=== PATIENT | female | born 1970 | race Caucasian/White ===

== ENCOUNTER 2016-06-16 15:58 | Observation (INO) ==
--- NOTE | 2016-06-16 16:13 | Emergency Department Note ---
Disposition Clinical Impression: Chest pain Disposition: Admitted As Inpatient Condition: Fair SOB HPI - General Chief Complaint: ED Chest Pain Stated Complaint: SOB chest pressure x2days Time Seen by Provider: 06/16/16 16:12 Source: patient, family Mode of arrival: ambulatory Limitations: no limitations Nursing Notes Reviewed: Yes Vital Signs Reviewed: Yes - History of Present Illness 45-year-old female presents with worsening shortness of breath and chest pressure with exertion over the last week. She states that she used to be able to walk up to a block without developing any shortness of breath or chest pressure, but over the last few days she is not able to walk more than 20 or 30 feet without developing chest pain or shortness of breath. She states the pain is pressure and retrosternal and nonradiating. It is associated with diaphoresis when severe without nausea or vomiting. It is still present at rest at this time, but milder them with exertion. She states that she had a left heart catheter that was reportedly normal in 2011. She has not had any workup since then. Pt Subjective Complaint: shortness of breath, chest pain - Related Data Home Medications Medication Instructions Recorded Confirmed Amitriptyline [Elavil] 100 mg PO HS 08/15/15 06/16/16 Aspirin [Adult Low Dose Aspirin EC] 81 mg PO DAILY 08/15/15 06/16/16 Cetirizine HCl [Zyrtec] 10 mg PO HS 08/15/15 06/16/16 Cholecalciferol (Vitamin D3) 5,000 unit PO DAILY 08/15/15 06/16/16 [Dialyvite Vitamin D] Duloxetine HCl [Cymbalta] 60 mg PO DAILY 08/15/15 06/16/16 HYDROcodone/Acet 10/325 mg [[place] 1 each PO Q6H PRN 08/15/15 06/16/16 10-325 mg] Insulin ASPART [Novolog] 0 unit SQ TIDAC 08/15/15 06/16/16 Insulin DETEMIR [Levemir] 75 unit SQ BID 08/15/15 06/16/16 LORazepam [Ativan] 0.5 mg PO DAILY PRN 08/15/15 06/16/16 Liraglutide [Victoza 2-Gil] 1.8 mg SQ HS 08/15/15 06/16/16 Lisinopril [Zestril] 10 mg PO QAM 08/15/15 06/16/16 Omeprazole [PriLOSEC] 40 mg PO QAM 08/15/15 06/16/16 Ranitidine HCl [Zantac] 300 mg PO HS 08/15/15 06/16/16 Simvastatin [Zocor] 20 mg PO HS 08/15/15 06/16/16 BuPROPion SR (12 HR) [Wellbutrin 150 mg PO BID 06/16/16 06/16/16 SR] GlipiZIDE XL (24 HR) [Glucotrol XL] 5 mg PO 0800 06/16/16 06/16/16 Lisinopril [Zestril] 20 mg PO QPM 06/16/16 06/16/16 Metformin HCl [Glucophage] 1,000 mg PO BID 06/16/16 06/16/16 Metoprolol [Lopressor] 50 mg PO BID 06/16/16 06/16/16 Pregabalin [Lyrica] 200 mg PO QAM 06/16/16 06/16/16 Pregabalin [Lyrica] 300 mg PO QPM 06/16/16 06/16/16 Allergies Allergy/AdvReac Type Severity Reaction Status Date / Time Amoxicillin [From Augmentin] Allergy Rash Verified 04/30/15 12:54 cephalexin [From Keflex] Allergy Rash Verified 04/30/15 12:54 clavulanic acid Allergy Rash Verified 04/30/15 12:54 [From Augmentin] exenatide [From Bydureon] Allergy Swelling Verified 04/30/15 12:54 of Lip/Tongue/Throat frovatriptan [From Frova] Allergy Palpitation Verified 04/30/15 12:54 s ketorolac [From Toradol] Allergy Anaphylaxis Verified 04/30/15 12:54 Medroxyprogesterone Allergy Rash Verified 04/30/15 12:54 [From Provera] metronidazole [From Flagyl] Allergy Headache Verified 04/30/15 12:54 ondansetron Allergy Anaphylaxis Verified 04/30/15 12:54 [From Zofran (as hydrochloride)] Oxycodone Allergy Difficulty Verified 04/30/15 12:54 Breathing Sulfa (Sulfonamide Allergy Rash Verified 04/30/15 12:54 Antibiotics) Verapamil Allergy Palpitation Verified 12/02/15 12:54 s All systems ED: reviewed and negative except as stated. Past Medical History - Past Medical History Attestation: Yes The following information was validated with the patient. Source: patient Medical history: Reports: asthma, diabetes, GERD, hypertension, migraine Surgical history: Reports: cholecystectomy, other Psychiatric history: Reports: anxiety, depression - Social History Smoking Status: Unknown if ever smoked Smokeless Tobacco Status: No Alcohol use: Reports: unknown Drug use: Reports: none Physical Exam - Head Head exam: atraumatic, normocephalic, normal inspection - Eye Eye exam: Present: normal appearance, PERRL, EOMI - ENT ENT exam: normal exam, normal oropharynx, mucous membranes moist - Neck Neck exam: Present: normal inspection, full ROM, trachea midline - Chest Chest inspection: Present: normal inspection, symmetric chest wall rise - Respiratory Respiratory exam: Clear to auscultation bilaterally without wheezes rales or rhonchi Cardiovascular Cardiovascular exam: Present: regular rate, normal rhythm, normal heart sounds - Abdominal Exam Abdominal exam: Present: soft, Non-Tender. Absent: tenderness, distention, guarding, rebound, rigidity - Extremities Exam Extremities exam: Present: normal inspection, full ROM - Expanded Lower Extremity Exam Hip/Pelvis exam: Present: normal inspection, full ROM - Back Exam Back exam: Present: normal inspection, full ROM. Absent: tenderness, CVA tenderness (R), CVA tenderness (L) - Neurological Exam Neurological exam: Present: alert, oriented X3, CN II-XII intact - Psychiatric Psychiatric exam: Present: normal affect, normal mood - Skin Skin exam: Present: warm, dry, intact, normal color - General Limitations: no limitations General appearance: alert, in no apparent distress Course - Reevaluation(s) Reevaluation #1: ED evaluation shows chest x-ray without acute findings, negative troponin, and EKG with ST depression and T-wave inversions which are new from prior. Pain improved after initial nitroglycerin. We will administer another nitroglycerin prior to disposition. Time: 18:11 Reevaluation #2: Resolve after additional nitroglycerin. Patient accepted by Dr. Laird. Time: 18:58 Vital Signs Temperature 97.5 F L 06/16/16 16:01 Pulse Rate 96 06/16/16 16:01 Respiratory Rate 18 06/16/16 16:01 Blood Pressure 132/87 06/16/16 16:01 O2 Sat by Pulse Oximetry 98 06/16/16 16:01 Temperature 97.5 F L 06/16/16 16:01 Pulse Rate 90 06/16/16 18:16 Respiratory Rate 18 06/16/16 19:43 Blood Pressure 128/80 06/16/16 19:43 O2 Sat by Pulse Oximetry 96 06/16/16 18:16 Oxygen Delivery Oxygen Delivery Room Air Shortness of Breath/Dyspnea - Lab Data Result diagrams: 06/16/16 16:41 06/16/16 16:41 Lab Results 06/16/16 06/16/16 06/16/16 Range/Units 16:41 16:41 16:41 WBC 8.8 (4.3-11.1) K/mcL RBC 4.67 (3.82-4.97) M/mcL Hgb 13.4 (11.5-15.4) g/dL Hct 40.9 (35.3-44.9) % MCV 87.6 (83.0-100.0) fL MCH 28.7 (28.0-33.3) pg MCHC 32.8 (31.6-35.5) g/dL RDW 14.3 (11.5-14.5) % Plt Count 117 L (140-400) K/mcL MPV 11.0 (9.4-12.4) fL Immature Gran % 0.2 (0-4) % Seg Neutrophils % 66.0 % Lymphocytes % 24.9 % Monocytes % 8.4 % Eosinophils % 0.0 % Basophils % 0.5 % Neutrophils # 5.8 (1.6-8.9) K/mcL Lymphocytes # 2.2 (0.6-4.6) K/mcL Monocytes # 0.7 (0.0-1.3) K/mcL Eosinophils # 0.0 (0.0-0.6) K/mcL Basophils # 0.0 (0.0-0.2) K/mcL Sodium 134 L (136-145) mEq/L Potassium 3.8 (3.5-4.5) mEq/L Chloride 103 (98-109) mEq/L Carbon Dioxide 21 (19-29) mEq/L BUN 12 (7-20) mg/dL Creatinine 0.90 (0.57-1.11) mg/dL Est GFR ( Amer) > 60 (> 60) Est GFR (Non-Af Amer) > 60 (> 60) BUN/Creatinine Ratio 13 (6-26) Glucose 180 H (70-99) mg/dL Calculated Osmolality 282 (280-300) Calcium 9.6 (8.6-10.8) mg/dL Troponin I 0.01 (0-0.03) ng/mL B-Natriuretic Peptide (0-100) pg/mL 06/16/16 Range/Units 16:41 WBC (4.3-11.1) K/mcL RBC (3.82-4.97) M/mcL Hgb (11.5-15.4) g/dL Hct (35.3-44.9) % MCV (83.0-100.0) fL MCH (28.0-33.3) pg MCHC (31.6-35.5) g/dL RDW (11.5-14.5) % Plt Count (140-400) K/mcL MPV (9.4-12.4) fL Immature Gran % (0-4) % Seg Neutrophils % % Lymphocytes % % Monocytes % % Eosinophils % % Basophils % % Neutrophils # (1.6-8.9) K/mcL Lymphocytes # (0.6-4.6) K/mcL Monocytes # (0.0-1.3) K/mcL Eosinophils # (0.0-0.6) K/mcL Basophils # (0.0-0.2) K/mcL Sodium (136-145) mEq/L Potassium (3.5-4.5) mEq/L Chloride (98-109) mEq/L Carbon Dioxide (19-29) mEq/L BUN (7-20) mg/dL Creatinine (0.57-1.11) mg/dL Est GFR ( Amer) (> 60) Est GFR (Non-Af Amer) (> 60) BUN/Creatinine Ratio (6-26) Glucose (70-99) mg/dL Calculated Osmolality (280-300) Calcium (8.6-10.8) mg/dL Troponin I (0-0.03) ng/mL B-Natriuretic Peptide < 10 (0-100) pg/mL - Radiology Data Radiology results reviewed: Yes I reviewed the patient's radiology results. - EKG Data EKG attestation: Yes I reviewed and interpreted this EKG. EKG results narrative: Initial EKG shows normal sinus rhythm at 91 with normal axis and intervals. There is no ST elevation, but there is minimal ST depression in lead 1 and flipped T waves in aVL. These are new compared with 10/02/2012. Repeat EKG performed at 1749 shows one box of ST depression in lead 1 which is slightly increased from the initial EKG. Otherwise unchanged. Attestation Statement - Attestation Attestation: Dr Morales note: Patient was seen in conjunction with resident Dr. Dario Moyer; please see his chart for complete documentation. I spent [id number] time with the patient and I agree with the patient's treatment and disposition. Pain improved prior to admission; labs unremarkable; subtle ekg changes noted vs prior ekg from over 3 years ago;
[2016-06-16] MEDS ORDERED: Aspirin 81 MG TAB.CHEW PO ONE (16:26)
[2016-06-16] MEDS ORDERED: Nitroglycerin 0.4 MG TAB.SUBL SL STA (16:26)
[2016-06-16 17:04] LABS: Basophils % 0.5 %; Hematocrit 40.9 % (35.3-44.9); Hemoglobin 13.4 g/dL (11.5-15.4); Immature Granulocytes % 0.2 % (0-4); Lymphocytes # 2.2 K/mcL (0.6-4.6); Lymphocytes % 24.9 %; Mean Corpuscular HGB Conc 32.8 g/dL (31.6-35.5); Mean Corpuscular Hemoglobin 28.7 pg (28.0-33.3); Mean Corpuscular Volume 87.6 fL (83.0-100.0); Monocytes # 0.7 K/mcL (0.0-1.3); Monocytes % 8.4 %; Neutrophils # 5.8 K/mcL (1.6-8.9); Platelet Count 117 K/mcL (140-400); Red Blood Count 4.67 M/mcL (3.82-4.97); Red Cell Distribution Width 14.3 % (11.5-14.5)
[2016-06-16 17:16] LABS: BUN/Creatinine Ratio 13 (6-26); Blood Urea Nitrogen 12 mg/dL (7-20); Calcium 9.6 mg/dL (8.6-10.8); Carbon Dioxide 21 mEq/L (19-29); Chloride 103 mEq/L (98-109); Glucose 180 mg/dL (70-99); Osmolality,Calculated 282 (280-300); Potassium 3.8 mEq/L (3.5-4.5); Sodium 134 mEq/L (136-145); eGFR For African Americans > 60 (> 60); eGFR For Non-African Americans > 60 (> 60)
[2016-06-16] MEDS: Nitroglycerin 0.4 MG TAB.SUBL SL STA ×2 (18:18→18:43)
[2016-06-16] MEDS ORDERED: methylPREDNISolone 125 MG/2 ML VIAL IVP ONE (18:20)
[2016-06-16] MEDS ORDERED: MOM Conc 10 ML UD.LIQ PO PRN (19:49)
[2016-06-16] MEDS ORDERED: Acetaminophen 325 MG TABLET PO PRN (19:49)
[2016-06-16] MEDS ORDERED: Naloxone 0.4 MG/ML INJ IVP PRN (19:49)
[2016-06-16] MEDS ORDERED: *HR* LORazepam 0.5 MG TABLET PO PRN (19:57)
[2016-06-16] MEDS ORDERED: *HR* HYDROcodone/Acet 10/325 mg TABLET PO PRN (19:57)
--- NOTE | 2016-06-16 20:23 | Internal Med History&Physical ---
<Marisabel Baker - Last Filed: 06/16/16 20:20> Date of Encounter: 06/16/16 Time of Encounter: 07:45 Assessment and Plan (1) Chest pain Current visit: Yes Status: Acute Pt with 1 week h/o SOB and L chest pain. Most likely not cardiac and is related to fibromyalgia, however, pt is a poorly controlled diabetic with A1 of 9.3 in March, and elevated triglycerides. EKG NSR. Pain is not reproduceable. Initial troponin 0.01ng/dL on arrival to ED. Continuous cardiac monitoring Continuous pulse oximetry Nuclear stress test ECHO Serial troponins 02 2L/NC Monitor labs Qualifiers: Chest pain type: unspecified Qualified Code(s): R07.9 - Chest pain, unspecified (2) Diabetes mellitus Current visit: Yes Status: Chronic Pt states that her blood sugars are horrible and admits to being non-adherent to insulin and diet regimen. On arrival to ED, blood sugar 180mg/dl. Most recent A1c 9.4 in March,. Diabetic diet Nutrition insulin with sliding scale Accuchecks ac and hs Qualifiers: Diabetes mellitus type: type 2 Diabetes mellitus complication status: with hyperglycemia Diabetes mellitus rat exterminator insulin use: with rat exterminator use Qualified Code(s): E11.65 - Type 2 diabetes mellitus with hyperglycemia; Z79.4 - prison (current) use of insulin Internal Medicine - H&P: HPI Admitted From: Home Plans for Post Hospital Care: Home History of present illness: Ms. Martinez is a 45 year old female with a history of DM, IBS, and Fibromyalgia, who presents to the ED with a 1 week history of SOB and CP. States that pain and SOB became worse yesterday with exertion and she had ble heaviness when she was trying to walk. Describes pain as heavy, tight, and pressure, without radiation. Denies dizziness, n/v, or diaphoresis. 1 week history of nasal congestion, post nasal drip, and rhinorrhea. Pt states that pain was relieved after 3rd SL Ntg in ED. Past Med Surg Social Fam HX - Past Medical History Medical history: asthma, diabetes, GERD, hypertension, migraine Psychiatric history: anxiety, depression - Past Surgical History Surgical History: cholecystectomy, other - Social History Smoking Status: Unknown if ever smoked Smokeless Tobacco Status: No Alcohol use: unknown Drug use: none Internal Medicine - H&P: Meds Amitriptyline [Elavil] 100 mg PO HS 08/15/15 [History] Aspirin [Adult Low Dose Aspirin EC] 81 mg PO DAILY 08/15/15 [History] Cetirizine HCl [Zyrtec] 10 mg PO HS 08/15/15 [History] Cholecalciferol (Vitamin D3) [Dialyvite Vitamin D] 5,000 unit PO DAILY 08/15/15 [History] Duloxetine HCl [Cymbalta] 120 mg PO DAILY 08/15/15 [History] HYDROcodone/Acet 10/325 mg [[place] 10-325 mg] 1 each PO Q6H PRN 08/15/15 [History ] Insulin ASPART [Novolog] 0 unit SQ TIDAC 08/15/15 [History] Insulin DETEMIR [Levemir] 75 unit SQ BID 08/15/15 [History] LORazepam [Ativan] 0.5 mg PO DAILY PRN 08/15/15 [History] Liraglutide [Victoza 2-Gil] 1.8 mg SQ HS 08/15/15 [History] Lisinopril [Zestril] 10 mg PO QAM 08/15/15 [History] Omeprazole [PriLOSEC] 40 mg PO QAM 08/15/15 [History] Ranitidine HCl [Zantac] 300 mg PO HS 08/15/15 [History] Simvastatin [Zocor] 20 mg PO HS 08/15/15 [History] BuPROPion SR (12 HR) [Wellbutrin SR] 150 mg PO BID 06/16/16 [History] GlipiZIDE XL (24 HR) [Glucotrol XL] 5 mg PO 0800 06/16/16 [History] Lisinopril [Zestril] 20 mg PO QPM 06/16/16 [History] Metformin HCl [Glucophage] 1,000 mg PO BID 06/16/16 [History] Metoprolol [Lopressor] 50 mg PO BID 06/16/16 [History] Pregabalin [Lyrica] 200 mg PO QAM 06/16/16 [History] Pregabalin [Lyrica] 300 mg PO QPM 06/16/16 [History] Allergies Amoxicillin [From Augmentin] Allergy (Verified 04/30/15 12:54) Rash cephalexin [From Keflex] Allergy (Verified 04/30/15 12:54) Rash clavulanic acid [From Augmentin] Allergy (Verified 04/30/15 12:54) Rash exenatide [From Bydureon] Allergy (Verified 04/30/15 12:54) Swelling of Lip/Tongue/Throat frovatriptan [From Frova] Allergy (Verified 04/30/15 12:54) Palpitations ketorolac [From Toradol] Allergy (Verified 04/30/15 12:54) Anaphylaxis Medroxyprogesterone [From Provera] Allergy (Verified 04/30/15 12:54) Rash metronidazole [From Flagyl] Allergy (Verified 04/30/15 12:54) Headache ondansetron [From Zofran (as hydrochloride)] Allergy (Verified 04/30/15 12:54) Anaphylaxis Oxycodone Allergy (Verified 04/30/15 12:54) Difficulty Breathing Sulfa (Sulfonamide Antibiotics) Allergy (Verified 04/30/15 12:54) Rash Verapamil Allergy (Verified 04/30/15 12:54) Palpitations All Systems PM: A 10-system review of systems was performed and is negative for pertinent findings except as documented above in the HPI. - Constitutional Constitutional: weakness, no chills, no fever(s), no night sweats - EENT Eyes: no change in vision Ears: ear pain, tinnitus, no decreased hearing Additional comments: reports R ear pain Nose, mouth and throat: dry mouth, nasal congestion, nasal discharge, post- nasal drip, sinus pressure, no facial pain, no sore throat - Cardiovascular Cardiovascular ROS IM: chest pain, dyspnea on exertion, no claudication, no diaphoresis, no lightheadedness, no paroxysmal nocturnal dyspnea, no syncope - Respiratory Respiratory: dyspnea, dyspnea on exertion, no wheezing, no pain on inspiration, no chest congestion - Gastrointestinal Gastrointestinal: no abdominal pain, no diarrhea, no nausea, no vomiting - Integumentary Integumentary IM: no rash - Constitutional Vitals: Temp Pulse Resp BP Pulse Ox 97.5 F L 90 18 128/80 96 06/16/16 16:01 06/16/16 18:16 06/16/16 19:43 06/16/16 19:43 06/16/16 18:16 General appearance: Present: A&O X 3, pleasant, no acute distress, answers questions appropriately - Head Head exam: Present: normal inspection - Eye Eye exam: Present: normal appearance, conjuntiva pink - ENT ENT exam: Present: mucous membranes moist, normal exam, normal external ear exam , normal oropharynx, TM's normal bilaterally - Neck Neck exam general surgery: Absent: lymphadenopathy, tenderness - Respiratory Respiratory exam: Present: CTAB. Absent: chest wall tenderness, decreased breath sounds, rales, respiratory distress, rhonchi, wheezes - Cardiovascular Cardiovascular exam: Present: RRR, +S1, +S2. Absent: bradycardia, diastolic murmur, JVD, systolic murmur - GI/Abdominal GI/Abdominal exam: Present: distended, normal bowel sounds. Absent: tenderness - Extremities Exam Extremities exam: Present: normal capillary refill, normal inspection, warm, radial pulses palpable and symetrical. Absent: pedal edema, tenderness - Neurological Exam Neurological exam: Present: alert, oriented X3, strengths equal and symetr throughout Internal Med - H&P Results - Labs CBC & Chem 7: 06/16/16 16:41 06/16/16 16:41 <Toñito Laird T - Last Filed: 06/16/16 20:52> Date of Encounter: 06/16/16 Internal Medicine - H&P: HPI History of present illness: Ms. Martinze is a 45 year old female All Systems PM: A 10-system review of systems was performed and is negative for pertinent findings except as documented above in the HPI. - Constitutional Vitals: Temp Pulse Resp BP Pulse Ox 98.2 F 93 20 127/84 93 L 06/16/16 20:20 06/16/16 20:20 06/16/16 20:20 06/16/16 20:20 06/16/16 20:20 Internal Med - H&P Results - Labs CBC & Chem 7: 06/16/16 16:41 06/16/16 16:41 - Attending Attestation I have independently examined this patient and reviewed her EMR. 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 45 Y/O F with PMH of DM, HTN, Tobacco use, Fibromyalgia, TEGAN on CPAP Developed chest discomfort described as ache non-radiating, not pressure like while walking at work. She also had exertional dyspnea. Symptoms lasted a few minutes and resolved spontaneously. No associated palpitations, nausea, vomiting , diaphoresis, dizziness. No abdominal/ or neurologic symptoms Examination: VSS. Not in any form of distress, alert, oriented X3, moves all extremities equally. No speech deficits, no facial paralysis, chest wall not tender, lungs are clear to auscultation, heart sounds S1, S2 only, no m/g/r. Abdomen is obese, not tender. Extremities no pedal edema Labs and Imaging reviewed. Unremarkable. CXR is unremarkable. EKG with TWI in aVL only, LAD, LAFB, not new. Assessment/Plan: Chest pain, r/o ACS, low suspicion but very high risk due to obesity, HLD, DM, Sedentary lifestyle. Trend troponins, ECHO, Stress test if trops negative. 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
[2016-06-16] MEDS ORDERED: Dextrose Gel 15 GM PO PRN ×2 (20:39)
[2016-06-16] MEDS ORDERED: *HR* Dextrose 50 % in Water (Syg) 50 ML SYRINGE IVP PRN (20:39)
[2016-06-16] MEDS ORDERED: D5% in Water 1,000 ML IV PRN (20:39)
[2016-06-16] MEDS ORDERED: Insulin DETEMIR 100 UNIT/ML X5UNITS SQ SCH (21:00)
[2016-06-16] MEDS: Loratadine 10 MG TABLET PO SCH (21:06)
[2016-06-16] MEDS: Famotidine 20 MG TABLET PO SCH (21:07)
[2016-06-16] MEDS: Insulin LISPRO 300 UNITS/3 ML VIAL SQ SCH (21:07)
[2016-06-16] MEDS: BuPROPion SR (12 HR) 150 MG TABLET PO SCH (21:07)
[2016-06-17 05:35] LABS: BUN/Creatinine Ratio 12 (6-26); Blood Urea Nitrogen 12 mg/dL (7-20); Carbon Dioxide 23 mEq/L (19-29); Chloride 103 mEq/L (98-109); Glucose 341 mg/dL (70-99); Osmolality,Calculated 297 (280-300); Potassium 3.8 mEq/L (3.5-4.5); Sodium 137 mEq/L (136-145); eGFR For African Americans > 60 (> 60); eGFR For Non-African Americans 58 (> 60)
[2016-06-17] MEDS ORDERED: Regadenoson 0.4 MG/5 ML SYRINGE IVP ONE (06:16)
[2016-06-17 07:43] LABS: Basophils % 0.5 %; Hematocrit 39.9 % (35.3-44.9); Hemoglobin 12.9 g/dL (11.5-15.4); Immature Granulocytes % 0.2 % (0-4); Lymphocytes % 30.1 %; Mean Corpuscular HGB Conc 32.3 g/dL (31.6-35.5); Mean Corpuscular Hemoglobin 28.9 pg (28.0-33.3); Mean Corpuscular Volume 89.5 fL (83.0-100.0); Mean Platelet Volume 11.2 fL (9.4-12.4); Monocytes # 0.6 K/mcL (0.0-1.3); Monocytes % 8.6 %; Platelet Count 102 K/mcL (140-400); Red Blood Count 4.46 M/mcL (3.82-4.97); Red Cell Distribution Width 14.6 % (11.5-14.5); Segmented Neutrophils % 60.6 %
[2016-06-17] MEDS: Insulin LISPRO 300 UNITS/3 ML VIAL SQ SCH ×4 (10:26→22:50)
[2016-06-17] MEDS: Aspirin Enteric Coated 81 MG Tablet PO SCH (10:27)
[2016-06-17] MEDS: Cholecalciferol (D-3) 1,000 UNIT TABLET PO SCH (10:29)
[2016-06-17] MEDS: BuPROPion SR (12 HR) 150 MG TABLET PO SCH ×2 (10:30→22:46)
[2016-06-17] MEDS: Pregabalin 50 MG CAPSULE PO SCH (10:31)
--- NOTE | 2016-06-17 10:57 | ECHO - Doppler Report ---
Echocardiogram Name: Katya Martinez Date of Study: 06/17/2016 Date: 1970 Ht: 65.0 in Medical Record#: [id number] Age: 45 Wt: 260.0 lb Gender: Female BSA: 2.21 Order #: [id number] Location: [facility] Room #: [id number] Reading Physician: Kasi Miles MD, [facility] Android Architect: Jamal Serrano RDCS Ordering Physician: Marisabel Baker CNP Primary Physician: Cooper Torrez MD Indications: Chest pain Impressions: Normal left ventricular size and systolic function, LVEF 65%. Mild left ventricular diastolic dysfunction. Normal right ventricular size and function. No significant valvular dysfunction. Unable to estimate RVSP due to lack of TR jet. Left Ventricular Wall Motion: Rest Echo Findings All wall segments showed normal motion. Findings: Study Quality * Technically adequate exam. ECG Findings * Normal sinus rhythm. Left Ventricle * Normal left ventricular size and systolic function, LVEF 65%. * Normal LV wall thickness. * Mild left ventricular diastolic dysfunction. Right Ventricle * Normal right ventricular size and function. Left Atrium * Normal left atrial size. Right Atrium * Normal right atrial size. Aorta * Normally sized aortic root. Pericardium * There is no pericardial effusion present. IVC * The IVC is not dilated. Aortic Valve * Trileaflet aortic valve. * No aortic stenosis. * No aortic regurgitation. Mitral Valve * Normal mitral valve structure. * No mitral stenosis. * No mitral regurgitation. Tricuspid Valve * Tricuspid valve not well visualized. * No tricuspid stenosis. * Trace tricuspid regurgitation. * Unable to estimate RVSP due to lack of TR jet. Pulmonic Valve * Pulmonic valve not well visualized. * No pulmonic stenosis. * No pulmonic regurgitation. History Hypertension Diabetes Hypercholesteremia Family History of CAD Measurements: BP: 143/ 87 2D Normal Values RVIDd: 2.70 cm IVSd: .92 cm 0.6 - 1.0 cm LVIDd: 3.92 cm 3.7 - 5.6 cm LVPWd: .96 cm 0.6 - 1.1 cm LVIDs: 2.49 cm 1.5 - 3.6 cm AO: 3.00 cm < 4.0 cm %FS: 36.50 cm >25 % LA volume: 44 Mitral Valve Peak E:.63 m/sec Peak A:.89 m/sec E/A Ratio:0.7 Updated by Kasi Miles MD, [facility] on 06/17/2016 10:50:38 AM electronically signed on 06/17/2016 10:51:24 AM with status of Final Wall Motion Mcqueen: 1=Normal, 2=Hypokinesis, 3=Akinesis, 4=Dyskinesis, 5=Aneurysmal, 6=Hyperkinetic, X=Not Visualized (Blank)=Missing
--- NOTE | 2016-06-17 11:54 | Electrocardiograph Report ---
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
--- NOTE | 2016-06-17 14:30 | Electrocardiograph Report ---
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
--- NOTE | 2016-06-17 15:27 | Internal Med Progress Note ---
Date of Encounter: 06/17/16 Time of Encounter: 11:00 - Assessment and plan (1) Chest pain Current Visit: Yes Status: Acute Assessment and plan: Patient with several risk factors including morbid obesity, sedentary lifestyle , diabetes uncontrolled, hypertension. Patient also stating that her dad of a massive heart attack at age 37. Second part of her stress test will be tomorrow, disposition dependent upon results. Echocardiogram unremarkable with ejection fraction of 65% and mild diastolic dysfunction. Chest x-ray negative. Patient readily admits to her extremely sedentary lifestyle. 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 Strongly suspect physical deconditioning as a likely cause of her dyspnea on exertion however will await stress test results given her comorbidities. ITS Impressions Chest X-Ray 06/16/16 16:14 IMPRESSION: No acute cardiopulmonary findings. D/ / Orly Castillo MD / Orly Castillo MD Interpreting Provider: Orly Castillo MD Echocardiogram impressions: Normal left ventricular size and systolic function, LVEF 65%. Mild left ventricular diastolic dysfunction. Normal red ventricular size and function. No significant valvular dysfunction. Unable to estimate RVSP due to lack of TR jet. (2) Diabetes mellitus Current Visit: Yes Status: Chronic Assessment and plan: Uncontrolled, A1c 9.3% on 04/21/16. medical educator on board. Continue sliding scale while admitted. Qualifiers: Diabetes mellitus type: type 2 Diabetes mellitus complication status: with hyperglycemia Diabetes mellitus chcf insulin use: with chcf use Qualified Code(s): E11.65 - Type 2 diabetes mellitus with hyperglycemia; Z79.4 - penitentiary (current) use of insulin (3) Fibromyalgia Current Visit: Yes Status: Chronic (4) Sedentary lifestyle Current Visit: Yes Status: Chronic (5) Morbid obesity with BMI of 40.0-44.9, adult Current Visit: Yes Status: Chronic - Subjective Interval history: Patient seen and examined. On examination, patient is sitting upright in bed watching television. Patient currently denies pain or shortness of breath. She states that she has had dyspnea on exertion for the last month or so but has worsened over the last week. She denies nausea and is endorsing a regular diet. - Constitutional Vitals: Temp Pulse Resp BP Pulse Ox 98.0 F 85 16 166/98 94 L 06/17/16 15:13 06/17/16 15:13 06/17/16 15:13 06/17/16 15:13 06/17/16 15:13 General appearance: Present: A&O X 3, morbidly obese, pleasant, no acute distress, answers questions appropriately - Head Head exam: Present: atraumatic, normocephalic - Eye Eye exam: Present: PERRL, conjuntiva pink, sclera anicteric Pupils: Present: PERRL - Neck Neck exam general surgery: Present: supple, trachea midline. Absent: lymphadenopathy - Respiratory Respiratory exam: Present: CTAB. Absent: accessory muscle use, rales, respiratory distress, rhonchi, wheezes - Cardiovascular Cardiovascular exam: Present: RRR, +S1, +S2. Absent: diastolic murmur, gallop, rubs, systolic murmur - GI/Abdominal GI/Abdominal exam: Present: normal bowel sounds, soft, no peritoneal signs. Absent: distended, tenderness - Extremities Exam Extremities exam: Present: warm, radial pulses palpable and symetrical. Absent : calf tenderness, cyanotic, pedal edema - Neurological Exam Neurological exam: Present: alert, CN II-XII intact, oriented X3, no focal deficits, strengths equal and symetr throughout. Absent: pronater drift, facial droop, speech deficit - Skin Skin exam: Present: dry, intact, normal color, warm Internal Medicine: Result - Labs CBC & Chem 7: 06/17/16 04:06 06/17/16 04:06 Labs: Short CBC 06/17/16 Range/Units 04:06 WBC 6.7 (4.3-11.1) K/mcL Hgb 12.9 (11.5-15.4) g/dL Hct 39.9 (35.3-44.9) % Plt Count 102 L (140-400) K/mcL Neutrophils # 4.0 (1.6-8.9) K/mcL BMP 06/17/16 04:06 Sodium 137 Potassium 3.8 Chloride 103 Carbon Dioxide 23 BUN 12 Creatinine 1.03 Glucose 341 H Calcium 9.0 Cardiac Enzymes 06/16/16 06/17/16 Range/Units 22:39 04:06 Troponin I 0.01 0.01 (0-0.03) ng/mL Consult Discharge Plan - Plan Referrals: Cooper Torrez MD [Primary Care Provider] -
[2016-06-17] MEDS ORDERED: Lisinopril 20 MG TABLET PO SCH (18:00)
[2016-06-17] MEDS ORDERED: Pregabalin 75 MG CAPSULE PO SCH (18:00)
[2016-06-17] MEDS: Famotidine 20 MG TABLET PO SCH (22:43)
[2016-06-17] MEDS: Loratadine 10 MG TABLET PO SCH (22:44)
[2016-06-18] MEDS: Insulin LISPRO 300 UNITS/3 ML VIAL SQ SCH ×3 (07:57→12:17)
[2016-06-18] MEDS: Pregabalin 50 MG CAPSULE PO SCH (08:55)
[2016-06-18] MEDS: Aspirin Enteric Coated 81 MG Tablet PO SCH (08:55)
[2016-06-18] MEDS: Cholecalciferol (D-3) 1,000 UNIT TABLET PO SCH (08:56)
[2016-06-18] MEDS: BuPROPion SR (12 HR) 150 MG TABLET PO SCH (08:56)
--- NOTE | 2016-06-18 09:13 | Nuclear Medicine Stress Report ---
Regadenoson Nuclear 2 day Name: Katya Lozano September Date of Study: 06/17/2016 Date: 1970 Ht: 65.0 in Medical Record#: [id number] Age: 45 Wt: 259.0 lb Gender: Female Order #: [id number] Location: [facility] Room: [facility] Supervising Provider: Saeid Tellez CNP Reading Physician: Kasi Miles MD, [facility] Ordering Physician: Apple Schwarz CNP Primary Care Physician: Cooper Torrez MD Stress Technologist: Sri Hall RRT Slot Technician: Jorge Luis Simms Indications: Chest Pain, Shortness of breath Impression: No significant ECG changes with regadenoson. Gated LVEF = 71%. Perfusion imaging was negative for ischemia or infarct. History: Hypertension Diabetes Hypercholesteremia Stress Test Summary: Stress Test Type: Pharmacologic Regadenoson 0.4mg/5ml given IV Baseline Information: Initial Heart Rate: 94 Blood Pressure: 126/82 Stress Information: Test Terminated Due to (primary): As per protocol Maximum Blood Pressure: 130/72 Maximum Heart Rate: 102 Percent Maximum Heart Rate Achieved: 58 Double Product: [id number] Symptoms: No chest symptoms Nuclear Summary: SPECT myocardial perfusion imaging using [id number] Sestamibi given intravenously was performed at rest and following cardiac stress testing. The resting images were obtained following initial dose of 29.7 mCi. Following stress an additional dose of 35.3 mCi was given at peak exercise or 30 seconds post regadenoson infusion. Findings: Stress Note * Resting ECG demonstrated sinus rhythm, incomplete RBBB, left axis deviation, non-specific ST-T wave abnormality. * No baseline arrhythmias were noted. * Patient had no chest pain during stress. * No arrhythmias were noted during stress. * No significant ECG changes with regadenoson. Hemodynamic responses * Normal hemodynamic responses to pharmacologic stress. Study Quality * Study quality is average. Gated EF % * Gated LVEF = 71%. Left Ventricle * The left ventricle is not dilated. * Normal Segmental Perfusion in rest. * Normal segmental perfusion in stress. TID * No evidence of transient ischemic dilatation. Updated by Kasi Miles MD, [facility] on 06/18/2016 9:10:10 AM electronically signed on 06/18/2016 9:10:34 AM with status of Final
[2016-06-18 15:14] VITALS: BP 137/89
--- NOTE | 2016-06-18 15:42 | Discharge Summary ---
Date of Encounter: 06/18/16 Time of Encounter: 14:30 - Discharge Diagnosis (1) Chest pain Priority: Primary Status: Resolved Comments: Patient denied chest pain on day of discharge. Chest x-ray negative. Echocardiogram unremarkable with ejection fraction of 65% with mild diastolic dysfunction. Nuclear stress test negative, ACS ruled out. Recommend follow-up outpatient. (2) Diabetes mellitus Priority: Secondary Status: Chronic Comments: Uncontrolled, A1c 9.3% on 04/21/16. natural resources extension educator on board while admitted. Patient seems highly motivated to change her diet and activity levels, recommend close outpatient follow-up and continued following up with diabetes education team outpatient. Qualifiers: Diabetes mellitus type: type 2 Diabetes mellitus complication status: with hyperglycemia Diabetes mellitus termite helper insulin use: with termite helper use Qualified Code(s): E11.65 - Type 2 diabetes mellitus with hyperglycemia; Z79.4 - terminal operations supervisor (current) use of insulin (3) Fibromyalgia Priority: Secondary Status: Chronic (4) Sedentary lifestyle Priority: Secondary Status: Chronic (5) Morbid obesity with BMI of 40.0-44.9, adult Priority: Secondary Status: Chronic - Discharge Medications Home Medications: Amitriptyline [Elavil] 100 mg PO HS 08/15/15 [History] Aspirin [Adult Low Dose Aspirin EC] 81 mg PO DAILY 08/15/15 [History] Cetirizine HCl [Zyrtec] 10 mg PO HS 08/15/15 [History] Cholecalciferol (Vitamin D3) [Dialyvite Vitamin D] 5,000 unit PO DAILY 08/15/15 [History] Duloxetine HCl [Cymbalta] 120 mg PO DAILY 08/15/15 [History] HYDROcodone/Acet 10/325 mg [[place] 10-325 mg] 1 each PO Q6H PRN 08/15/15 [History ] Insulin ASPART [Novolog] 0 unit SQ TIDAC 08/15/15 [History] Insulin DETEMIR [Levemir] 75 unit SQ BID 08/15/15 [History] LORazepam [Ativan] 0.5 mg PO DAILY PRN 08/15/15 [History] Liraglutide [Victoza 2-Gil] 1.8 mg SQ HS 08/15/15 [History] Lisinopril [Zestril] 10 mg PO QAM 08/15/15 [History] Omeprazole [PriLOSEC] 40 mg PO QAM 08/15/15 [History] Ranitidine HCl [Zantac] 300 mg PO HS 08/15/15 [History] Simvastatin [Zocor] 20 mg PO HS 08/15/15 [History] BuPROPion SR (12 HR) [Wellbutrin SR] 150 mg PO BID 06/16/16 [History] GlipiZIDE XL (24 HR) [Glucotrol XL] 5 mg PO 0800 06/16/16 [History] Lisinopril [Zestril] 20 mg PO QPM 06/16/16 [History] Metformin HCl [Glucophage] 1,000 mg PO BID 06/16/16 [History] Metoprolol [Lopressor] 50 mg PO BID 06/16/16 [History] Pregabalin [Lyrica] 200 mg PO QAM 06/16/16 [History] Pregabalin [Lyrica] 300 mg PO QPM 06/16/16 [History] Allergies/Adverse Reactions: Allergies Amoxicillin [From Augmentin] Allergy (Verified 04/30/15 12:54) Rash cephalexin [From Keflex] Allergy (Verified 04/30/15 12:54) Rash clavulanic acid [From Augmentin] Allergy (Verified 04/30/15 12:54) Rash exenatide [From Bydureon] Allergy (Verified 04/30/15 12:54) Swelling of Lip/Tongue/Throat frovatriptan [From Frova] Allergy (Verified 04/30/15 12:54) Palpitations ketorolac [From Toradol] Allergy (Verified 04/30/15 12:54) Anaphylaxis Medroxyprogesterone [From Provera] Allergy (Verified 04/30/15 12:54) Rash metronidazole [From Flagyl] Allergy (Verified 04/30/15 12:54) Headache ondansetron [From Zofran (as hydrochloride)] Allergy (Verified 04/30/15 12:54) Anaphylaxis Oxycodone Allergy (Verified 04/30/15 12:54) Difficulty Breathing Sulfa (Sulfonamide Antibiotics) Allergy (Verified 04/30/15 12:54) Rash Verapamil Allergy (Verified 04/30/15 12:54) Palpitations Procedures/tests Complete & Pending: Procedures Performed prior 72 hours Category Date Time Status NM gab perf SPECT multi [NM] Routine Exams 06/17/16 09:00 Taken EV echocardiogram Routine Y 06/17/16 09:00 Completed SP pharm nuclear stress Routine Y 06/17/16 Completed Date of admission: 06/16/16 19:00 Primary care physician: Cooper Torrez MD Consults: 06/17/16 09:00 Consult to Runway Model [CONS] Routine Comment: Discharging clinician: Apple Schwarz Anticipated date of discharge: 06/18/16 - Patient Status Disposition: Home, Self-Care Condition: Fair Functional capacity at discharge: independent ambulation Overall status at discharge: patient is back to baseline - Discharge Instructions Follow Up With: Cooper Torrez MD [Primary Care Provider] - 06/24/16 9:45 am Additional Instructions: Follow-up with primary care provider as scheduled - Diet and Activity Activity: increase activity as tolerated Diet: diabetic diet, low fat, low cholesterol, low salt diet Hospital course: Ms. Martinez is a 45 year old female with past medical history of asthma, uncontrolled diabetes, GERD, hypertension, migraines, fibromyalgia, morbid obesity. Patient presented to the emergency part chief complaint one-week history of shortness of breath and chest pain worsened with exertion and associated with bilateral lower extremity heaviness when she was attempting to ambulate. Patient described chest pain as heavy, tight, and pressure without radiation. Patient denied dizziness, nausea or vomiting, or diaphoresis. Patient also endorsed one-week history of nasal congestion, postnasal drip, and rhinorrhea. Patient stating her pain was relieved after the third sublingual nitroglycerin tablet in the emergency department. Workup in the emergency department unremarkable. Chest x-ray negative. Patient was admitted to the hospitalist service for further evaluation and management. Echocardiogram unremarkable with ejection fraction of 65% and mild diastolic dysfunction. No lower extremity edema present while patient was admitted. She had a 2 day nuclear stress test that was negative for ischemia or infarct. ACS ruled out. 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 Patient stating that she is normally extremely sedentary and states that she felt she was more short of breath because she was up and active while she was teaching. She seems motivated to change her diet and exercise and was seen by diabetes education while admitted. She was discharged home in stable condition with close outpatient follow-up recommended. ITS Impressions Chest X-Ray 06/16/16 16:14 IMPRESSION: No acute cardiopulmonary findings. D/ / Orly Castillo MD / Orly Castillo MD Interpreting Provider: Orly Castillo MD Echocardiogram impressions: Normal left ventricular size and systolic function, LVEF 65%. Mild left ventricular diastolic dysfunction. Normal right ventricular size and function. No significant valvular dysfunction. Unable to estimate RVSP due to lack of TR jet. 2 Day nuclear stress test impression: No significant ECG changes with regadenoson. Gated LVEF equals 71%. Perfusion imaging was negative for ischemia or infarct. - Time Spent with Patient Total time spent providing and/or coordinating discharge services: - Constitutional Vitals: Temp Pulse Resp BP Pulse Ox 98.6 F 74 12 137/89 92 L 06/18/16 15:12 06/18/16 15:12 06/18/16 15:12 06/18/16 15:12 06/18/16 07:58 General appearance: Present: A&O X 3, morbidly obese, pleasant, no acute distress, answers questions appropriately - Head Head exam: Present: atraumatic, normocephalic - Eye Eye exam: Present: PERRL, conjuntiva pink, sclera anicteric Pupils: Present: PERRL - Neck Neck exam general surgery: Present: supple, trachea midline. Absent: lymphadenopathy - Respiratory Respiratory exam: Present: CTAB. Absent: accessory muscle use, rales, respiratory distress, rhonchi, wheezes - Cardiovascular Cardiovascular exam: Present: RRR, +S1, +S2. Absent: diastolic murmur, gallop, rubs, systolic murmur - GI/Abdominal GI/Abdominal exam: Present: normal bowel sounds, soft, no peritoneal signs. Absent: distended, tenderness - Extremities Exam Extremities exam: Present: warm, radial pulses palpable and symetrical. Absent : calf tenderness, cyanotic, pedal edema - Neurological Exam Neurological exam: Present: alert, CN II-XII intact, normal gait, oriented X3, no focal deficits, strengths equal and symetr throughout. Absent: pronater drift, facial droop, speech deficit - Skin Skin exam: Present: dry, intact, normal color, warm
== END 2016-06-18 17:00 | disposition home or self-care (01) ==
LOC: 3BNU 15:58 → EMEROO 15:58 → 3BNU 20:06
PROVIDERS: ADMIT Internal Medicine; ATTEND Nurse Practitioner Family

== ENCOUNTER 2018-02-23 12:35 | Observation (INO) ==
[2018-02-23] MEDS ORDERED: Aspirin 325 MG TABLET PO STA (13:42)
--- NOTE | 2018-02-23 13:42 | Emergency Department Note ---
Disposition Clinical Impression: Chest pain Qualifiers: Chest pain type: unspecified Qualified Code(s): R07.9 - Chest pain, unspecified Disposition: Admitted As Inpatient Condition: Good Referrals: Cooper Torrez MD [Primary Care Provider] - General Adult HPI - General Chief complaint: ED Chest Pain Stated complaint: Chest/Neck Pain Time Seen by Provider: 02/23/18 12:40 Source: patient Limitations: no limitations Nursing Notes Reviewed: Yes Vital Signs Reviewed: Yes - History of Present Illness HPI Narrative: Pt here at [facility] today to get a nuclear stress test, Ct of her chest, and an echo. Pt had her tests completed, when she got up from her nucelar stress test she began to have a " funny feeling" in her left chest. She states atht it is a pain, but she cannot further describe it. Pt does have a history of asthma. She has been having a pressure for the past couple months. States that she now also has pain in her left neck and under her jaw. Does report sinus drainage and cough that is productive. Subjective fever for 3-4 days. Pt has no history of blood clots. Is not on OCP, denies recent travel or prolonged immobilization. Pain Scale: 4 - Related Data Home Medications Medication Instructions Recorded Confirmed Amitriptyline [Elavil] 100 mg PO HS 08/15/15 06/16/16 Aspirin [Adult Low Dose Aspirin EC] 81 mg PO DAILY 08/15/15 06/16/16 Cetirizine HCl [Zyrtec] 10 mg PO HS 08/15/15 06/16/16 Cholecalciferol (Vitamin D3) 5,000 unit PO DAILY 08/15/15 06/16/16 [Dialyvite Vitamin D] Duloxetine HCl [Cymbalta] 120 mg PO DAILY 08/15/15 06/16/16 HYDROcodone/Acet 10/325 mg [[place] 1 each PO Q6H PRN 08/15/15 06/16/16 10-325 mg] Lisinopril [Zestril] 10 mg PO QAM 08/15/15 06/16/16 Omeprazole [PriLOSEC] 40 mg PO QAM 08/15/15 06/16/16 Simvastatin [Zocor] 20 mg PO HS 08/15/15 06/16/16 raNITIdine HCl [Zantac] 300 mg PO HS 08/15/15 06/16/16 BuPROPion SR (12 HR) [Wellbutrin 150 mg PO BID 06/16/16 06/16/16 SR] Lisinopril [Zestril] 20 mg PO QPM 06/16/16 06/16/16 Metformin HCl [Glucophage] 1,000 mg PO BID 06/16/16 06/16/16 Metoprolol [Lopressor] 50 mg PO BID 06/16/16 06/16/16 Pregabalin [Lyrica] 200 mg PO QAM 06/16/16 06/16/16 Pregabalin [Lyrica] 300 mg PO QPM 06/16/16 06/16/16 Albuterol Sulfate [Ventolin Hfa] 2 puff IH Q4H PRN 02/23/18 02/23/18 Fluticasone Propionate Nasal 1 spr NS DAILY 02/23/18 02/23/18 [Flonase] Fluticasone/Vilanterol [Breo 1 puff IH DAILY 02/23/18 02/23/18 Ellipta 100-25 Mcg INH] Montelukast [Singulair] 10 mg PO DAILY 02/23/18 02/23/18 Subcutaneous Insulin Pump [T:Slim] 1 each MC CONT 02/23/18 02/23/18 Allergies Allergy/AdvReac Type Severity Reaction Status Date / Time Amoxicillin [From Augmentin] Allergy Rash Verified 04/30/15 12:54 cephalexin [From Keflex] Allergy Rash Verified 04/30/15 12:54 clavulanic acid Allergy Rash Verified 04/30/15 12:54 [From Augmentin] exenatide [From Bydureon] Allergy Swelling Verified 04/30/15 12:54 of Lip/Tongue/Throat frovatriptan [From Frova] Allergy Palpitation Verified 04/30/15 12:54 s ketorolac [From Toradol] Allergy Anaphylaxis Verified 04/30/15 12:54 Medroxyprogesterone Allergy Rash Verified 04/30/15 12:54 [From Provera] metronidazole [From Flagyl] Allergy Headache Verified 04/30/15 12:54 ondansetron Allergy Anaphylaxis Verified 04/30/15 12:54 [From Zofran (as hydrochloride)] Oxycodone Allergy Difficulty Verified 04/30/15 12:54 Breathing Sulfa (Sulfonamide Allergy Rash Verified 04/30/15 12:54 Antibiotics) Verapamil Allergy Palpitation Verified 04/30/15 12:54 s All systems ED: reviewed and negative except as stated. Review of Systems: As Per HPI Constitutional: Reports: fever (subjective, but has not measured it. ). Denies : chills Cardiovascular: Reports: chest pain (pressure for several months, however after the nuclear stress test she now has a different pain to the left chest and jaw. ). Denies: syncope Respiratory: Reports: cough, dyspnea (chronic. Not worse today, has been getting better after started on brio by pulmonology) Gastrointestinal: Reports: abdominal pain (chronic. Not increased today). Denies: nausea, vomiting, diarrhea Genitourinary: Denies: urgency, dysuria, frequency, hematuria Musculoskeletal: Denies: back pain, neck pain Integumentary: Denies: rash Past Medical History - Past Medical History Attestation: Yes The following information was validated with the patient. Source: patient Medical history: Reports: asthma, diabetes, GERD, hypertension, migraine, other ( fibromyalgia) Surgical history: Reports: cholecystectomy, other Psychiatric history: Reports: anxiety, depression - Social History Smoking Status: Never smoker Smokeless Tobacco Status: No Alcohol use: Reports: none Drug use: Reports: none Physical Exam - General Limitations: no limitations General appearance: alert, in no apparent distress, obese - Head Head exam: atraumatic, normocephalic, normal inspection - Eye Eye exam: Present: normal appearance, PERRL, EOMI - ENT ENT exam: normal exam, normal oropharynx, mucous membranes moist - Neck Neck exam: Present: normal inspection, full ROM, trachea midline - Chest Chest inspection: Present: normal inspection, symmetric chest wall rise - Respiratory Respiratory exam: Present: normal lung sounds bilaterally. Absent: respiratory distress, wheezes, accessory muscle use - Cardiovascular Cardiovascular exam: Present: regular rate, normal rhythm, normal heart sounds - Abdominal Exam Abdominal exam: Present: soft, Non-Tender. Absent: distention, organomegaly, Santos's sign, Rovsing's sign, tenderness at McBurney's Point - Extremities Exam Extremities exam: Present: normal inspection, full ROM, normal capillary refill. Absent: tenderness, pedal edema, calf tenderness - Neurological Exam Neurological exam: Present: alert, oriented X3 - Psychiatric Psychiatric exam: Present: flat affect - Skin Skin exam: Present: warm, dry, intact, normal color. Absent: rash, cyanosis, diaphoresis Course Course Narrative: Pt has a negative troponin. Did get partial relief with Nitroglycerin. Concerned for Chest pain post stress test. D dimer negative. Pt is not a smoker but does have a family history of her father dying from an [place] at age 37. Patient mentating appropriately. Is agreeable to admission to the hospital at this time for further cardiac evaluation. Patient does state she has a history of fibromyalgia sclerosis possibly was causing her chest pain. We did discuss that this could be the cause however the concern is that she did develop chest pain directly after the stress test that was different from her normal pressure sensation. Chest X-Ray 02/23/18 12:46 IMPRESSION: No significant findings in the chest. D/ / Eugenio Nicole MD / Eugenio Nicole MD Interpreting Provider: Eugenio Nicole MD Vital Signs Temperature 98.1 F 02/23/18 12:41 Pulse Rate 75 02/23/18 12:41 Respiratory Rate 18 02/23/18 12:41 Blood Pressure 125/84 02/23/18 12:41 O2 Sat by Pulse Oximetry 98 02/23/18 12:41 Temperature 98.1 F 02/23/18 12:41 Pulse Rate 77 02/23/18 14:09 Respiratory Rate 16 02/23/18 15:19 Blood Pressure 103/81 02/23/18 15:19 O2 Sat by Pulse Oximetry 95 02/23/18 14:09 Oxygen Delivery Oxygen Delivery Room Air Medical Decision Making - Medical Records Medical records reviewed: Yes I reviewed the patient's medical records. - Lab Data Lab results reviewed: Yes I reviewed the patient's lab results. Result diagrams: 02/23/18 12:56 02/23/18 12:56 Lab Results 02/23/18 02/23/18 02/23/18 Range/Units 12:46 12:56 12:56 WBC 9.2 (4.3-11.1) K/mcL RBC 4.82 (3.82-4.97) M/mcL Hgb 12.9 (11.5-15.4) g/dL Hct 41.7 (35.3-44.9) % MCV 86.5 (83.0-100.0) fL MCH 26.8 L (28.0-33.3) pg MCHC 30.9 L (31.6-35.5) g/dL RDW 16.9 H (11.5-14.5) % Plt Count 124 L (140-400) K/mcL MPV 11.1 (9.4-12.4) fL Immature Gran % 0.3 (0-4) % Seg Neutrophils % 67.5 % Lymphocytes % 23.5 % Monocytes % 8.4 % Eosinophils % 0.0 % Basophils % 0.3 % Neutrophils # 6.2 (1.6-8.9) K/mcL Lymphocytes # 2.2 (0.6-4.6) K/mcL Monocytes # 0.8 (0.0-1.3) K/mcL Eosinophils # 0.0 (0.0-0.6) K/mcL Basophils # 0.0 (0.0-0.2) K/mcL PT 13.9 H (9.4-12.1) Seconds INR 1.2 APTT 32.9 (26.0-36.0) Seconds D-Dimer 467 (0-500) ng/mLFEU Sodium 139 (136-145) mEq/L Potassium 3.8 (3.5-5.1) mEq/L Chloride 108 H (98-107) mEq/L Carbon Dioxide 24 (23-29) mEq/L BUN 16 (6-20) mg/dL Creatinine 0.85 (0.60-1.20) mg/dL Est GFR ( Amer) > 60 (> 60) Est GFR (Non-Af Amer) > 60 (> 60) BUN/Creatinine Ratio 19 (6-26) Glucose 112 H (70-105) mg/dL Calculated Osmolality 290 (280-300) Calcium 8.9 (8.6-10.3) mg/dL Troponin I < 0.03 (< 0.04) ng/mL - Radiology Data Radiology results reviewed: Yes I reviewed the patient's radiology results. Chest X-Ray 02/23/18 12:46 IMPRESSION: No significant findings in the chest. D/ / Eugenio Nicole MD / Eugenio Nicole MD Interpreting Provider: Eugenio Nicole MD - EKG Data EKG #1 EKG attestation: Yes I reviewed and interpreted this EKG. EKG results narrative: Normal sinus rhythm at a rate of 73. [place] interval is 181. QRS duration is 106. QT is 470. QTC is 460. No signs of acute ischemia. No previous EKG to compare to. Attestation Statement - Attestation Attestation: I, Diego Rothman DO, examined this patient [id number] and my medical decision-making was reviewed with Dr. Fartun Beltrán, Resident Physician. I agree with the documented findings, disposition and treatment plan as described except to the extent set forth below. Please see my progress notes for details. Heart Score - Score History: Highly Suspicious EKG: Normal Age: 45-65 Risk Factors: 1-2 risk factors Troponin: Less than normal limit HEART Score Total: 4
--- NOTE | 2018-02-23 13:48 | Emergency Department Note ---
Disposition Referrals: Cooper Torrez MD [Primary Care Provider] - General Adult HPI - General Chief complaint: ED Chest Pain Stated complaint: Chest/Neck Pain Time Seen by Provider: 02/23/18 12:40 Source: patient Limitations: no limitations Nursing Notes Reviewed: Yes Vital Signs Reviewed: Yes (CDU care) - History of Present Illness Pain Scale: 4 - Related Data Home Medications Medication Instructions Recorded Confirmed Amitriptyline [Elavil] 100 mg PO HS 08/15/15 06/16/16 Aspirin [Adult Low Dose Aspirin EC] 81 mg PO DAILY 08/15/15 06/16/16 Cetirizine HCl [Zyrtec] 10 mg PO HS 08/15/15 06/16/16 Cholecalciferol (Vitamin D3) 5,000 unit PO DAILY 08/15/15 06/16/16 [Dialyvite Vitamin D] Duloxetine HCl [Cymbalta] 120 mg PO DAILY 08/15/15 06/16/16 HYDROcodone/Acet 10/325 mg [[place] 1 each PO Q6H PRN 08/15/15 06/16/16 10-325 mg] Insulin ASPART [Novolog] 0 unit SQ TIDAC 08/15/15 06/16/16 Insulin DETEMIR [Levemir] 75 unit SQ BID 08/15/15 06/16/16 LORazepam [Ativan] 0.5 mg PO DAILY PRN 08/15/15 06/16/16 Liraglutide [Victoza 2-Gil] 1.8 mg SQ HS 08/15/15 06/16/16 Lisinopril [Zestril] 10 mg PO QAM 08/15/15 06/16/16 Omeprazole [PriLOSEC] 40 mg PO QAM 08/15/15 06/16/16 Simvastatin [Zocor] 20 mg PO HS 08/15/15 06/16/16 raNITIdine HCl [Zantac] 300 mg PO HS 08/15/15 06/16/16 BuPROPion SR (12 HR) [Wellbutrin 150 mg PO BID 06/16/16 06/16/16 SR] GlipiZIDE XL (24 HR) [Glucotrol XL] 5 mg PO 0800 06/16/16 06/16/16 Lisinopril [Zestril] 20 mg PO QPM 06/16/16 06/16/16 Metformin HCl [Glucophage] 1,000 mg PO BID 06/16/16 06/16/16 Metoprolol [Lopressor] 50 mg PO BID 06/16/16 06/16/16 Pregabalin [Lyrica] 200 mg PO QAM 06/16/16 06/16/16 Pregabalin [Lyrica] 300 mg PO QPM 06/16/16 06/16/16 Previous Rx's Medication Instructions Recorded Benzonatate [Tessalon] 200 mg PO TID PRN #30 capsule 09/21/16 GuaiFENesin ER [Mucinex] 1,200 mg PO BID #20 tbbp.12hr 09/21/16 levoFLOXacin [Levaquin] 500 mg PO DAILY #10 tablet 09/21/16 methylPREDNISolone [Medrol] 4 mg PO TAPER #21 tablet 09/21/16 Allergies Allergy/AdvReac Type Severity Reaction Status Date / Time Amoxicillin [From Augmentin] Allergy Rash Verified 04/30/15 12:54 cephalexin [From Keflex] Allergy Rash Verified 04/30/15 12:54 clavulanic acid Allergy Rash Verified 04/30/15 12:54 [From Augmentin] exenatide [From Bydureon] Allergy Swelling Verified 04/30/15 12:54 of Lip/Tongue/Throat frovatriptan [From Frova] Allergy Palpitation Verified 04/30/15 12:54 s ketorolac [From Toradol] Allergy Anaphylaxis Verified 04/30/15 12:54 Medroxyprogesterone Allergy Rash Verified 04/30/15 12:54 [From Provera] metronidazole [From Flagyl] Allergy Headache Verified 04/30/15 12:54 ondansetron Allergy Anaphylaxis Verified 04/30/15 12:54 [From Zofran (as hydrochloride)] Oxycodone Allergy Difficulty Verified 04/30/15 12:54 Breathing Sulfa (Sulfonamide Allergy Rash Verified 04/30/15 12:54 Antibiotics) Verapamil Allergy Palpitation Verified 04/30/15 12:54 s Past Medical History - Past Medical History Medical history: Reports: asthma, diabetes, GERD, hypertension, migraine Surgical history: Reports: cholecystectomy, other Psychiatric history: Reports: anxiety, depression - Social History Smoking Status: Never smoker Smokeless Tobacco Status: No Alcohol use: Reports: none Drug use: Reports: none Physical Exam - General Limitations: no limitations General appearance: alert Course Vital Signs Temperature 98.1 F 02/23/18 12:41 Pulse Rate 75 02/23/18 12:41 Respiratory Rate 18 02/23/18 12:41 Blood Pressure 125/84 02/23/18 12:41 O2 Sat by Pulse Oximetry 98 02/23/18 12:41 Temperature 98.1 F 02/23/18 12:41 Pulse Rate 74 02/23/18 13:04 Respiratory Rate 18 02/23/18 13:04 Blood Pressure 112/94 02/23/18 13:04 O2 Sat by Pulse Oximetry 97 02/23/18 13:04 Oxygen Delivery Oxygen Delivery Room Air
[2018-02-23 13:55] LABS: Basophils % 0.3 %; Hematocrit 41.7 % (35.3-44.9); Hemoglobin 12.9 g/dL (11.5-15.4); Immature Granulocytes % 0.3 % (0-4); Lymphocytes # 2.2 K/mcL (0.6-4.6); Lymphocytes % 23.5 %; Mean Corpuscular HGB Conc 30.9 g/dL (31.6-35.5); Mean Corpuscular Hemoglobin 26.8 pg (28.0-33.3); Mean Corpuscular Volume 86.5 fL (83.0-100.0); Mean Platelet Volume 11.1 fL (9.4-12.4); Monocytes # 0.8 K/mcL (0.0-1.3); Monocytes % 8.4 %; Neutrophils # 6.2 K/mcL (1.6-8.9); Platelet Count 124 K/mcL (140-400); Red Blood Count 4.82 M/mcL (3.82-4.97); Red Cell Distribution Width 16.9 % (11.5-14.5); Segmented Neutrophils % 67.5 %
[2018-02-23] MEDS: Nitroglycerin 0.4 MG TAB.SUBL SL PRN ×3 (14:01→14:11)
[2018-02-23 14:05] LABS: Activated Partial Thrombo Time 32.9 Seconds (26.0-36.0); INR 1.2; Prothrombin Time 13.9 Seconds (9.4-12.1)
[2018-02-23 14:15] LABS: BUN/Creatinine Ratio 19 (6-26); Blood Urea Nitrogen 16 mg/dL (6-20); Calcium 8.9 mg/dL (8.6-10.3); Carbon Dioxide 24 mEq/L (23-29); Chloride 108 mEq/L (98-107); Glucose 112 mg/dL (70-105); Osmolality,Calculated 290 (280-300); Potassium 3.8 mEq/L (3.5-5.1); Sodium 139 mEq/L (136-145); Troponin I < 0.03 ng/mL (< 0.04); eGFR For Non-African Americans > 60 (> 60)
--- NOTE | 2018-02-23 14:21 | Emergency Department Note ---
Disposition Clinical Impression: Chest pain Disposition: Admitted As Inpatient Condition: Fair Referrals: Cooper Torrez MD [Partnered Physician] - Forms: ED Satisfaction Letter Time of Disposition: 14:49 General Adult HPI - General Chief complaint: ED Chest Pain Stated complaint: Chest/Neck Pain Time Seen by Provider: 02/23/18 12:40 Source: patient Limitations: no limitations - History of Present Illness Pain Scale: 4 - Related Data Home Medications Medication Instructions Recorded Confirmed Amitriptyline [Elavil] 100 mg PO HS 08/15/15 06/16/16 Aspirin [Adult Low Dose Aspirin EC] 81 mg PO DAILY 08/15/15 06/16/16 Cetirizine HCl [Zyrtec] 10 mg PO HS 08/15/15 06/16/16 Cholecalciferol (Vitamin D3) 5,000 unit PO DAILY 08/15/15 06/16/16 [Dialyvite Vitamin D] Duloxetine HCl [Cymbalta] 120 mg PO DAILY 08/15/15 06/16/16 HYDROcodone/Acet 10/325 mg [[place] 1 each PO Q6H PRN 08/15/15 06/16/16 10-325 mg] Insulin ASPART [Novolog] 0 unit SQ TIDAC 08/15/15 06/16/16 Insulin DETEMIR [Levemir] 75 unit SQ BID 08/15/15 06/16/16 LORazepam [Ativan] 0.5 mg PO DAILY PRN 08/15/15 06/16/16 Liraglutide [Victoza 2-Igl] 1.8 mg SQ HS 08/15/15 06/16/16 Lisinopril [Zestril] 10 mg PO QAM 08/15/15 06/16/16 Omeprazole [PriLOSEC] 40 mg PO QAM 08/15/15 06/16/16 Simvastatin [Zocor] 20 mg PO HS 08/15/15 06/16/16 raNITIdine HCl [Zantac] 300 mg PO HS 08/15/15 06/16/16 BuPROPion SR (12 HR) [Wellbutrin 150 mg PO BID 06/16/16 06/16/16 SR] GlipiZIDE XL (24 HR) [Glucotrol XL] 5 mg PO 0800 06/16/16 06/16/16 Lisinopril [Zestril] 20 mg PO QPM 06/16/16 06/16/16 Metformin HCl [Glucophage] 1,000 mg PO BID 06/16/16 06/16/16 Metoprolol [Lopressor] 50 mg PO BID 06/16/16 06/16/16 Pregabalin [Lyrica] 200 mg PO QAM 06/16/16 06/16/16 Pregabalin [Lyrica] 300 mg PO QPM 06/16/16 06/16/16 Previous Rx's Medication Instructions Recorded Benzonatate [Tessalon] 200 mg PO TID PRN #30 capsule 09/21/16 GuaiFENesin ER [Mucinex] 1,200 mg PO BID #20 tbbp.12hr 09/21/16 levoFLOXacin [Levaquin] 500 mg PO DAILY #10 tablet 09/21/16 methylPREDNISolone [Medrol] 4 mg PO TAPER #21 tablet 09/21/16 Allergies Allergy/AdvReac Type Severity Reaction Status Date / Time Amoxicillin [From Augmentin] Allergy Rash Verified 04/30/15 12:54 cephalexin [From Keflex] Allergy Rash Verified 04/30/15 12:54 clavulanic acid Allergy Rash Verified 04/30/15 12:54 [From Augmentin] exenatide [From Bydureon] Allergy Swelling Verified 04/30/15 12:54 of Lip/Tongue/Throat frovatriptan [From Frova] Allergy Palpitation Verified 04/30/15 12:54 s ketorolac [From Toradol] Allergy Anaphylaxis Verified 04/30/15 12:54 Medroxyprogesterone Allergy Rash Verified 04/30/15 12:54 [From Provera] metronidazole [From Flagyl] Allergy Headache Verified 04/30/15 12:54 ondansetron Allergy Anaphylaxis Verified 04/30/15 12:54 [From Zofran (as hydrochloride)] Oxycodone Allergy Difficulty Verified 04/30/15 12:54 Breathing Sulfa (Sulfonamide Allergy Rash Verified 04/30/15 12:54 Antibiotics) Verapamil Allergy Palpitation Verified 04/30/15 12:54 s Past Medical History - Past Medical History Medical history: Reports: asthma, diabetes, GERD, hypertension, migraine Surgical history: Reports: cholecystectomy, other Psychiatric history: Reports: anxiety, depression - Social History Smoking Status: Never smoker Smokeless Tobacco Status: No Alcohol use: Reports: none Drug use: Reports: none Physical Exam - General Limitations: no limitations General appearance: alert Course Vital Signs Temperature 98.1 F 02/23/18 12:41 Pulse Rate 75 02/23/18 12:41 Respiratory Rate 18 02/23/18 12:41 Blood Pressure 125/84 02/23/18 12:41 O2 Sat by Pulse Oximetry 98 02/23/18 12:41 Temperature 98.1 F 02/23/18 12:41 Pulse Rate 77 02/23/18 14:09 Respiratory Rate 15 02/23/18 14:09 Blood Pressure 121/63 02/23/18 14:09 O2 Sat by Pulse Oximetry 95 02/23/18 14:09 Oxygen Delivery Oxygen Delivery Room Air Medical Decision Making - Lab Data Result diagrams: 02/23/18 12:56 02/23/18 12:56 Lab Results 02/23/18 02/23/18 02/23/18 Range/Units 12:46 12:56 12:56 WBC 9.2 (4.3-11.1) K/mcL RBC 4.82 (3.82-4.97) M/mcL Hgb 12.9 (11.5-15.4) g/dL Hct 41.7 (35.3-44.9) % MCV 86.5 (83.0-100.0) fL MCH 26.8 L (28.0-33.3) pg MCHC 30.9 L (31.6-35.5) g/dL RDW 16.9 H (11.5-14.5) % Plt Count 124 L (140-400) K/mcL MPV 11.1 (9.4-12.4) fL Immature Gran % 0.3 (0-4) % Seg Neutrophils % 67.5 % Lymphocytes % 23.5 % Monocytes % 8.4 % Eosinophils % 0.0 % Basophils % 0.3 % Neutrophils # 6.2 (1.6-8.9) K/mcL Lymphocytes # 2.2 (0.6-4.6) K/mcL Monocytes # 0.8 (0.0-1.3) K/mcL Eosinophils # 0.0 (0.0-0.6) K/mcL Basophils # 0.0 (0.0-0.2) K/mcL PT 13.9 H (9.4-12.1) Seconds INR 1.2 APTT 32.9 (26.0-36.0) Seconds D-Dimer 467 (0-500) ng/mLFEU Sodium 139 (136-145) mEq/L Potassium 3.8 (3.5-5.1) mEq/L Chloride 108 H (98-107) mEq/L Carbon Dioxide 24 (23-29) mEq/L BUN 16 (6-20) mg/dL Creatinine 0.85 (0.60-1.20) mg/dL Est GFR ( Amer) > 60 (> 60) Est GFR (Non-Af Amer) > 60 (> 60) BUN/Creatinine Ratio 19 (6-26) Glucose 112 H (70-105) mg/dL Calculated Osmolality 290 (280-300) Calcium 8.9 (8.6-10.3) mg/dL Troponin I < 0.03 (< 0.04) ng/mL Attestation Statement - Attestation Attestation: I, Diego Rothman DO, examined this patient [id number] and my medical decision-making was reviewed with Dr. Fartun Beltrán, Resident Physician. I agree with the documented findings, disposition and treatment plan as described except to the extent set forth below. Please see my progress notes for details. 47-year-old female presents emergency room for evaluation of left-sided chest pain and tightness up into her neck. Symptoms started acutely after completing a chemical stress test. Patient was at the hospital today having chemical stress test as well as CT imaging completed looking for other etiology aside from her asthma for symptoms she is been having over the last several months. Prior to the events here today, the patient denied chest pain shortness of breath headache vision changes nausea vomiting or diarrhea. All the symptoms started after completing the chemical stress test here today. Patient denies any history of coronary artery disease because of the father at 37 years old from cardiac arrest. Patient is otherwise clinically stable. Initial EKG does not show any acute abnormalities compared to previous EKG from almost 1 year ago. The stress test as well as the CT imaging were reviewed by myself did not show any acute etiology or symptom issue at this point. Patient will be provided with aspirin and nitroglycerin here in the emergency room for what is concerning for anginal-like presentation after the chemical stress test. She will also have chest x-ray CBC chemistry and troponin completed. Disposition will most likely be admission. Physical exam shows a well- appearing female resting comfortably in the bed. Vital signs are stable. Lungs are clear heart is regular abdomen is soft nontender nondistended with no guarding no rigidity no peritoneal symptoms. Patient is otherwise in no apparent distress. Vital signs are reviewed and are stable. Chest x-ray CBC chemistry troponin and EKGs will be collected and serial evaluation. Patient will most likely be admitted. Aspirin and nitroglycerin will be given. Patient is clinically stable at this point. See detailed documentation the physical exam, medical intervention, medical decision-making and disposition in the resident physician's note. Symptoms are consistent with what appears to be filled stress test considering the onset of the chest pain directly after the chemical evaluation here today. [id number] Patient was discussed with the hospitalist .. No other recommendations or concerns regarding this time. Patient will be admitted for cardiac evaluation. D-dimer is negative troponin is negative repeat EKGs were normal. Pain is resolving at this time and nitroglycerin symptomatically control. Etiology is unknown at this point. Patient is stable to time of admission.
[2018-02-23] MEDS ORDERED: Naloxone 0.4 MG/ML INJ IVP PRN (15:09)
[2018-02-23] MEDS ORDERED: *HR* HYDROcodone/Acet 10/325 mg TABLET PO PRN (15:12)
[2018-02-23] MEDS ORDERED: Dextrose Gel 15 GM/37.5 ML TUBE PO PRN ×2 (15:19)
[2018-02-23] MEDS ORDERED: *HR* Dextrose 50 % in Water (Syg) 50 ML SYRINGE IVP PRN (15:19)
[2018-02-23] MEDS ORDERED: D5% in Water 1,000 ML IVC PRN (15:19)
--- NOTE | 2018-02-23 16:05 | Internal Med History&Physical ---
Date of Encounter: 02/24/18 Time of Encounter: 16:00 Internal Medicine - H&P: HPI Chief complaint: Chest pain after stress test today History of present illness: Ms. Martinez is a 47 year old female with pmh of morbid obesity, hypertension, asthma , diabetes presenting with complaints of chest pain intermittently for the past 3 months that acutely got worse today. Pain has been associated with shortness of breath on minimal exertion. Patient notes her family physician sent her to get an echo, a CT chest and a stress test due to this intermittent chest pain. After the 1st part of the nuclear stress test today, she began to experience worsening chest pain which she described as a left sided squeezing tightness constant and radiating to the neck. She says the pain was associated with shortness of breath. She had some relief with rest and she was referred to the ER In the ER, she got some nitroglycerin with some minimal relief. She continues to have chest pain. Echo came back WNL and CT chest was negative. She is being admitted for further management on unstable angina Past Med Surg Social Fam HX - Past Medical History Medical history: asthma, diabetes, GERD, hypertension, migraine, other ( fibromyalgia) Additional medical history: FIBROMYALGIA, IBS, POLYCYSTIC OVARIAN SYNDROME, IRON DEFICIENCY ANEMIA. Psychiatric history: anxiety, depression - Past Surgical History Surgical History: cholecystectomy, other Additional surgical history: BILATERAL CARPAL TUNNEL SURGERY, RIGHT ANKLE SURGERY. - Social History Smoking Status: Never smoker Smokeless Tobacco Status: No Alcohol use: none Drug use: none - Family History Mother Hx Family Cardiac Disorders: Yes (HYPERTENSION.) Hx Family Endocrine Disorder: Yes (DIABETES MELLITUS.) Internal Medicine - H&P: Meds Amitriptyline [Elavil] 100 mg PO HS 08/15/15 [History] Aspirin [Adult Low Dose Aspirin EC] 81 mg PO DAILY 08/15/15 [History] Cetirizine HCl [Zyrtec] 10 mg PO HS 08/15/15 [History] Cholecalciferol (Vitamin D3) [Dialyvite Vitamin D] 5,000 unit PO DAILY 08/15/15 [History] Duloxetine HCl [Cymbalta] 120 mg PO DAILY 08/15/15 [History] HYDROcodone/Acet 10/325 mg [[place] 10-325 mg] 1 each PO Q6H PRN 08/15/15 [History ] Lisinopril [Zestril] 10 mg PO QAM 08/15/15 [History] Omeprazole [PriLOSEC] 40 mg PO QAM 08/15/15 [History] Simvastatin [Zocor] 20 mg PO HS 08/15/15 [History] raNITIdine HCl [Zantac] 300 mg PO HS 08/15/15 [History] BuPROPion SR (12 HR) [Wellbutrin SR] 150 mg PO BID 06/16/16 [History] Lisinopril [Zestril] 20 mg PO QPM 06/16/16 [History] Metformin HCl [Glucophage] 1,000 mg PO BID 06/16/16 [History] Metoprolol [Lopressor] 50 mg PO BID 06/16/16 [History] Pregabalin [Lyrica] 200 mg PO QAM 06/16/16 [History] Pregabalin [Lyrica] 300 mg PO QPM 06/16/16 [History] Albuterol Sulfate [Ventolin Hfa] 2 puff IH Q4H PRN 02/23/18 [History] Fluticasone Propionate Nasal [Flonase] 1 spr NS DAILY 02/23/18 [History] Fluticasone/Vilanterol [Breo Ellipta 100-25 Mcg INH] 1 puff IH DAILY 02/23/18 [ History] Montelukast [Singulair] 10 mg PO DAILY 02/23/18 [History] Subcutaneous Insulin Pump [T:Slim] 1 each MC CONT 02/23/18 [History] 3 Allergy/AdvReac Type Severity Reaction Status Date / Time Amoxicillin [From Augmentin] Allergy Rash Verified 04/30/15 12:54 cephalexin [From Keflex] Allergy Rash Verified 04/30/15 12:54 clavulanic acid Allergy Rash Verified 04/30/15 12:54 [From Augmentin] exenatide [From Bydureon] Allergy Swelling Verified 04/30/15 12:54 of Lip/Tongue/Throat frovatriptan [From Frova] Allergy Palpitation Verified 04/30/15 12:54 s ketorolac [From Toradol] Allergy Anaphylaxis Verified 04/30/15 12:54 Medroxyprogesterone Allergy Rash Verified 04/30/15 12:54 [From Provera] metronidazole [From Flagyl] Allergy Headache Verified 04/30/15 12:54 ondansetron Allergy Anaphylaxis Verified 04/30/15 12:54 [From Zofran (as hydrochloride)] Oxycodone Allergy Difficulty Verified 04/30/15 12:54 Breathing Sulfa (Sulfonamide Allergy Rash Verified 04/30/15 12:54 Antibiotics) Verapamil Allergy Palpitation Verified 04/30/15 12:54 s All Systems PM: A 10-system review of systems was performed and is negative for pertinent findings except as documented above in the HPI. - Constitutional Constitutional: no chills, no fever(s), no night sweats - EENT Eyes: no change in vision, no discharge, no pain, no photophobia Ears: no ear discharge, no ear pain, no tinnitus Nose, mouth and throat: no dysphagia, no nasal discharge, no neck pain, no sore throat - Cardiovascular Cardiovascular ROS IM: chest pain, dyspnea, dyspnea on exertion, no diaphoresis , no lightheadedness, no palpitations, no syncope - Respiratory Respiratory: dyspnea on exertion, no cough, no dyspnea, no wheezing, no excessive phlegm production - Gastrointestinal Gastrointestinal: no abdominal pain, no diarrhea, no hematemesis, no hematochezia, no melena, no nausea, no vomiting - Genitourinary Genitourinary: no change in urinary stream, no dysuria, no flank pain, no hematuria - Musculoskeletal Musculoskeletal ROS IM: no numbness, no tingling - Integumentary Integumentary IM: no rash, no unusual bruising - Neurological Neurological ROS: no confusion, no convulsions, no focal weakness, no numbness, no tingling, no tremor(s) - Hematologic/Lymphatic Hematologic/Lymphatic: no easy bruising - Constitutional Vitals: Temp Pulse Resp BP Pulse Ox 98.8 F 76 15 117/62 94 02/23/18 15:54 02/23/18 15:54 02/23/18 15:54 02/23/18 15:54 02/23/18 15:54 General appearance: Present: A&O X 3 Exam: NAD. Morbidly obese - Head Head exam: Present: atraumatic, normocephalic - Eye Eye exam: Present: PERRL, conjuntiva pink, sclera anicteric Pupils: Present: PERRL - Neck Neck exam general surgery: Present: supple, trachea midline. Absent: lymphadenopathy - Respiratory Respiratory exam: Present: CTAB. Absent: accessory muscle use, rales, rhonchi, wheezes - Cardiovascular Cardiovascular exam: Present: RRR, +S1, +S2. Absent: diastolic murmur, gallop, rubs, systolic murmur - GI/Abdominal GI/Abdominal exam: Present: normal bowel sounds, soft, no peritoneal signs. Absent: distended, tenderness - Extremities Exam Extremities exam: Present: warm, radial pulses palpable and symmetrical. Absent : calf tenderness, cyanotic, pedal edema - Neurological Exam Neurological exam: Present: CN II-XII intact, oriented X3, no focal deficits. Absent: pronater drift, facial droop, speech deficit - Skin Skin exam: Present: dry, intact Internal Med - H&P Results - Labs CBC & Chem 7: 02/24/18 01:44 02/24/18 01:44 - Assessment and plan (1) Unstable angina Current Visit: Yes Status: Acute Assessment and plan: Pt comes in with ongoing left sided chest pain after first part of her nuclear stress test. Has significant risk factors for CAD with diabetes, obesity , htn and family history of early heart disease (Father had [place] at age 37) will start on full dose anticoagulation with lovenox, continue aspirin and beta blockers. Trend troponins. Cardiology consulted and recs appreciated Scheduled to complete 2nd part of stress test in am (2) Diabetes mellitus Current Visit: No Status: Chronic Assessment and plan: Continue on insulin pump. 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 Diet and exercise (5) Hypertension Current Visit: Yes Status: Acute Assessment and plan: Continue home meds Qualifiers: Qualified Code(s): I10 - Essential (primary) hypertension (6) DVT prophylaxis Current Visit: Yes Status: Acute Assessment and plan: On lovenox - Time Spent With Patient Total time spent is greater than 50% in coordination of care (as documented) at patient's floor/unit and/or counseling patient:
[2018-02-23] MEDS ORDERED: Insulin LISPRO 300 UNITS/3 ML VIAL SQ SCH (16:30)
[2018-02-23] MEDS ORDERED: Pregabalin 75 MG CAPSULE PO SCH (18:00)
[2018-02-23] MEDS ORDERED: Lisinopril 20 MG TABLET PO SCH (18:00)
[2018-02-23] MEDS: *HR* Enoxaparin 120 MG/0.8 ML SYRINGE SQ SCH (19:37)
[2018-02-23] MEDS: Subcutaneous Insulin Pump [T:Slim] 1 EACH SQ SCH (20:02)
[2018-02-23] MEDS: *HR* Morphine 2 MG/ML SYRINGE IVP PRN (20:10)
[2018-02-23] MEDS ORDERED: Famotidine 20 MG TABLET PO SCH (21:00)
[2018-02-23] MEDS ORDERED: Insulin DETEMIR 100 UNIT/ML X5UNITS SQ SCH (21:00)
[2018-02-23] MEDS: BuPROPion SR (12 HR) 150 MG TABLET PO SCH (21:50)
--- NOTE | 2018-02-24 00:54 | Electrocardiograph Report ---
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
[2018-02-24 01:57] LABS: Mean Corpuscular HGB Conc 31.3 g/dL (31.6-35.5)
[2018-02-24 01:59] LABS: Basophils % 0.4 %; Eosinophils % 0.1 %; Hematocrit 37.4 % (35.3-44.9); Hemoglobin 11.7 g/dL (11.5-15.4); Immature Granulocytes % 0.1 % (0-4); Immature Platelets 5.1 % (1.1-6.1); Lymphocytes # 2.2 K/mcL (0.6-4.6); Lymphocytes % 31.2 %; Mean Corpuscular Volume 86.4 fL (83.0-100.0); Mean Platelet Volume 10.9 fL (9.4-12.4); Monocytes # 0.5 K/mcL (0.0-1.3); Monocytes % 6.9 %; Neutrophils # 4.4 K/mcL (1.6-8.9); Red Blood Count 4.33 M/mcL (3.82-4.97); Red Cell Distribution Width 16.6 % (11.5-14.5); Segmented Neutrophils % 61.3 %
[2018-02-24 02:06] LABS: Platelet Count 96 K/mcL (140-400)
[2018-02-24 02:16] LABS: BUN/Creatinine Ratio 20 (6-26); Blood Urea Nitrogen 18 mg/dL (6-20); Calcium 9.2 mg/dL (8.6-10.3); Carbon Dioxide 27 mEq/L (23-29); Chloride 104 mEq/L (98-107); Glucose 231 mg/dL (70-105); Magnesium 1.9 mg/dL (1.6-2.6); Osmolality,Calculated 291 (280-300); Phosphorous 3.7 mg/dL (2.7-4.5); Potassium 3.7 mEq/L (3.5-5.1); Sodium 136 mEq/L (136-145); eGFR For Non-African Americans > 60 (> 60)
[2018-02-24] MEDS: *HR* Enoxaparin 120 MG/0.8 ML SYRINGE SQ SCH (06:05)
[2018-02-24] MEDS: BuPROPion SR (12 HR) 150 MG TABLET PO SCH (08:10)
[2018-02-24] MEDS ORDERED: (Fluticasone/Vilanterol [Breo Ellipta 100-25 Mcg Inh] IH SCH (09:00)
[2018-02-24] MEDS ORDERED: Pregabalin 50 MG CAPSULE PO SCH (09:00)
[2018-02-24] MEDS ORDERED: Aspirin Enteric Coated 81 MG Tablet PO SCH (09:00)
--- NOTE | 2018-02-24 10:46 | Internal Med Progress Note ---
Hospitalist Progress Note - Encounter Date of Encounter: 02/24/18 Time of Encounter: 10:45 - Exam Vitals: Temp Pulse Resp BP Pulse Ox 97.6 F 64 15 115/65 95 02/24/18 06:57 02/24/18 06:57 02/24/18 06:57 02/24/18 06:57 02/24/18 06:57 Exam: Gen - Awake, alert, oriented x 3, no acute distress HEENT - NCAT, PERRLA, EOMI, hearing grossly intact, oropharynx benign CV - RRR, normal S1 and S2, no M/R/G, no BLE edema Resp - Normal WOB, CTAB, no W/R/R GI - Soft, NT/ND, no masses, normal bowel sounds, Skin - Warm, dry, no rashes/lesions/ulcers Psych - Normal mood and affect, no depression or anxiety - Assessment and Plan (1) Unstable angina Current Visit: Yes Status: Acute Assessment and Plan: Pt comes in with ongoing left sided chest pain after first part of her nuclear stress test. Has significant risk factors for CAD with diabetes, obesity , htn and family history of early heart disease (Father had [place] at age 37) will start on full dose anticoagulation with lovenox, continue aspirin and beta blockers. Trend troponins. Cardiology consulted and recs appreciated Completed 2nd part of stress test this am showing medium, mild-moderate intensity perfusion defect anterior/anteroseptal segments, gated EF=59%. Cardiology plan for left heart cath. (2) Diabetes mellitus Current Visit: No Status: Chronic Assessment and Plan: Continue on insulin pump. Monitor fingersticks (3) Fibromyalgia Current Visit: Yes Status: Chronic Assessment and Plan: Continue TCAs and pain control (4) Morbid obesity with BMI of 40.0-44.9, adult Current Visit: Yes Status: Chronic Assessment and Plan: Counseled. Diet and exercise (5) Hypertension Current Visit: Yes Status: Acute Assessment and Plan: Continue home meds (6) DVT prophylaxis Current Visit: Yes Status: Acute Assessment and Plan: On lovenox - Time Spent with Patient Total time spent is greater than 50% in coordination of care (as documented) at patient's floor/unit and/or counseling patient: Internal Medicine: Result - Labs CBC & Chem 7: 02/24/18 01:44 02/24/18 01:44 Labs: Short CBC 02/24/18 Range/Units 01:44 WBC 7.1 (4.3-11.1) K/mcL Hgb 11.7 (11.5-15.4) g/dL Hct 37.4 (35.3-44.9) % Plt Count 96 L (140-400) K/mcL Neutrophils # 4.4 (1.6-8.9) K/mcL BMP 02/24/18 01:44 Sodium 136 Potassium 3.7 Chloride 104 Carbon Dioxide 27 BUN 18 Creatinine 0.92 Glucose 231 H Calcium 9.2 Cardiac Enzymes 02/23/18 02/23/18 02/24/18 Range/Units 16:18 20:57 01:44 Troponin I < 0.03 < 0.03 < 0.03 (< 0.04) ng/mL - ABG Interpretation ABG results: PT/INR, D-dimer PT 13.9 Seconds (9.4-12.1) H 02/23/18 12:46 D-Dimer 467 ng/mLFEU (0-500) 02/23/18 12:46 Consult Discharge Plan - Plan Referrals: Cooper Torrez MD [Primary Care Provider] - (2) Diabetes mellitus Qualifiers: Diabetes mellitus type: type 2 Diabetes mellitus mcc insulin use: with 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
[2018-02-24] MEDS: *HR* Morphine 2 MG/ML SYRINGE IVP PRN (11:57)
--- NOTE | 2018-02-24 12:01 | Cardiology Consult Note ---
Date of Encounter: 02/24/18 Time of Encounter: 12:00 Assessment and Plan (1) Abnormal stress test Current Visit: Yes Status: Acute Patient presented due to chest pain 2 hours after Lexiscan administration. Describes atypical chest pain symptoms. Troponin negative x4, no ECG changes noted. 2 day stress test completed today: medium, mild-moderate intensity perfusion defect anterior/anteroseptal segments, gated EF=59% On asa, statin, BB. Continues to describe chest pain upon exam today, "Mild." Recommend LHC with possible PCI; alternatives, risks, and benefits discussed, she is agreeable to proceed. Of note, thrombocytopenia noted, PLT stable, appear chronic in etiology. Further recommendations to follow. Discussion w patient/family: The assessment and plan as outlined above was discussed with the patient and/or family members who expressed understanding and agreement. All questions were answered. Thank you for involving us in the care of your patient. Please call with any questions. The patient will be discussed and reviewed with Dr. Cody; changes to be made accordingly. History of Present Illness Consult date: 02/24/18 Requesting physician: Sugey Delgado Consult reason: Abnormal stress test; chest pain Chief complaint: Chest pain History of present illness: Ms. Martinez is a 47 year old female with PMHx significant of asthma, morbid obesity , fibromyalgia, DMII, and GERD who presented to the ED due to chest pain experienced after lexiscan stress test yesterday. Chest pain was described as left-sided with radiation to neck, she reports minimal symptom improvement after NTG tab, pain eventually subsided. Of note, pain started ~2 hours after lexiscan was administered. She reports worsening shortness of breath with minimal activity over the past 3-4 months in addition to chest pressure which prompted order for stress test by PCP. Reports episode of chest discomfort overnight. Reports mild chest pressure/heaviness upon exam today, has been nearly constant since admission. Nothing seems to worsen or improve pain. Troponin negative x4. No ECG changes present. Patient reports remote LHC that demonstrated 10% blockage in one artery. Past Med Surg Social Fam HX - Past Medical History Attestation: Yes The following information was validated with the patient. Source: patient Medical history: asthma, diabetes, GERD, hypertension, migraine, other ( fibromyalgia) Additional medical history: FIBROMYALGIA, IBS, POLYCYSTIC OVARIAN SYNDROME, IRON DEFICIENCY ANEMIA. Psychiatric history: anxiety, depression - Past Surgical History Surgical History: cholecystectomy, other Additional surgical history: BILATERAL CARPAL TUNNEL SURGERY, RIGHT ANKLE SURGERY. - Social History Smoking Status: Never smoker Smokeless Tobacco Status: No Alcohol use: none Drug use: none - Family History Mother Hx Family Cardiac Disorders: Yes (HYPERTENSION.) Hx Family Endocrine Disorder: Yes (DIABETES MELLITUS.) Father Living Status: Cause of : [place] Hx Family Cardiac Disorders: Yes (CAD) Medications and Allergies Amitriptyline [Elavil] 100 mg PO HS 08/15/15 [History] Aspirin [Adult Low Dose Aspirin EC] 81 mg PO DAILY 08/15/15 [History] Cetirizine HCl [Zyrtec] 10 mg PO HS 08/15/15 [History] Cholecalciferol (Vitamin D3) [Dialyvite Vitamin D] 5,000 unit PO DAILY 08/15/15 [History] Duloxetine HCl [Cymbalta] 120 mg PO DAILY 08/15/15 [History] HYDROcodone/Acet 10/325 mg [[place] 10-325 mg] 1 each PO Q6H PRN 08/15/15 [History ] Lisinopril [Zestril] 10 mg PO QAM 08/15/15 [History] Omeprazole [PriLOSEC] 40 mg PO QAM 08/15/15 [History] Simvastatin [Zocor] 20 mg PO HS 08/15/15 [History] raNITIdine HCl [Zantac] 300 mg PO HS 08/15/15 [History] BuPROPion SR (12 HR) [Wellbutrin SR] 150 mg PO BID 06/16/16 [History] Lisinopril [Zestril] 20 mg PO QPM 06/16/16 [History] Metformin HCl [Glucophage] 1,000 mg PO BID 06/16/16 [History] Metoprolol [Lopressor] 50 mg PO BID 06/16/16 [History] Pregabalin [Lyrica] 200 mg PO QAM 06/16/16 [History] Pregabalin [Lyrica] 300 mg PO QPM 06/16/16 [History] Albuterol Sulfate [Ventolin Hfa] 2 puff IH Q4H PRN 02/23/18 [History] Fluticasone Propionate Nasal [Flonase] 1 spr NS DAILY 02/23/18 [History] Fluticasone/Vilanterol [Breo Ellipta 100-25 Mcg INH] 1 puff IH DAILY 02/23/18 [ History] Montelukast [Singulair] 10 mg PO DAILY 02/23/18 [History] Subcutaneous Insulin Pump [T:Slim] 1 each MC CONT 02/23/18 [History] Empagliflozin [Jardiance] 25 mg PO DAILY 02/24/18 [History] 3 Allergy/AdvReac Type Severity Reaction Status Date / Time Amoxicillin [From Augmentin] Allergy Rash Verified 04/30/15 12:54 cephalexin [From Keflex] Allergy Rash Verified 04/30/15 12:54 clavulanic acid Allergy Rash Verified 04/30/15 12:54 [From Augmentin] exenatide [From Bydureon] Allergy Swelling Verified 04/30/15 12:54 of Lip/Tongue/Throat frovatriptan [From Frova] Allergy Palpitation Verified 04/30/15 12:54 s ketorolac [From Toradol] Allergy Anaphylaxis Verified 04/30/15 12:54 Medroxyprogesterone Allergy Rash Verified 04/30/15 12:54 [From Provera] metronidazole [From Flagyl] Allergy Headache Verified 04/30/15 12:54 ondansetron Allergy Anaphylaxis Verified 04/30/15 12:54 [From Zofran (as hydrochloride)] Oxycodone Allergy Difficulty Verified 04/30/15 12:54 Breathing Sulfa (Sulfonamide Allergy Rash Verified 04/30/15 12:54 Antibiotics) Verapamil Allergy Palpitation Verified 04/30/15 12:54 s All Systems Review: The remainder of the systems were reviewed and are negative - Cardiovascular Cardiovascular: as per HPI Physical Examination Vital Signs, Last 4 Hours Temp Pulse Resp BP Pulse Ox 02/24/18 11:50 99.1 F 73 15 135/79 92 General: Other (morbidly obese) HEENT: Atraumatic, Normocephaly Cardiac: Reg Rate and Rhythm, Normal S1 and S2 Lungs: Normal Breath Sounds Neuro: Alert and responsive Abdomen: Soft Skin: No rashes noted on visualized skin Musculoskeletal: No Chest Wall Tenderness Extremities: No Edema, Normal Pulses Results 02/24/18 01:44 02/24/18 01:44 Lab Results 02/23/18 02/23/18 02/24/18 16:18 20:57 01:44 WBC Hgb Hct Plt Count Sodium Potassium Chloride Carbon Dioxide BUN Creatinine Glucose Calcium Magnesium Troponin I < 0.03 < 0.03 < 0.03 02/24/18 02/24/18 01:44 01:44 WBC 7.1 Hgb 11.7 Hct 37.4 Plt Count 96 L Sodium 136 Potassium 3.7 Chloride 104 Carbon Dioxide 27 BUN 18 Creatinine 0.92 Glucose 231 H Calcium 9.2 Magnesium 1.9 Troponin I Active Medications Albuterol Sulfate (Albuterol Inhaler) 2 puff IH [id number] PRN PRN Reason: Dyspnea Stop: 08/25/18 20:01 Amitriptyline HCl (Elavil) 100 mg PO HS [facility] Stop: 08/25/18 21:01 Last Admin: 02/23/18 21:49 Dose: 100 mg Aspirin (Aspirin Ec) 81 mg PO DAILY [facility] Stop: 08/26/18 09:01 Last Admin: 02/24/18 08:10 Dose: 81 mg Bupropion HCl (Wellbutrin Sr) 150 mg PO BID [facility] Stop: 08/25/18 21:01 Last Admin: 02/24/18 08:10 Dose: 150 mg Dextrose/Water (Dextrose 50% (Syg)) 25 ml IVP AD PRN PRN Reason: Hypoglycemia Stop: 08/25/18 15:20 Duloxetine HCl (Cymbalta) 120 mg PO DAILY [facility] Stop: 08/26/18 09:01 Last Admin: 02/24/18 08:10 Dose: 120 mg Enoxaparin Sodium (Lovenox) 120 mg 1 mg/kg (120 mg) SQ Q12HR [facility] PRN Reason: Protocol Stop: 08/25/18 19:31 Last Admin: 02/24/18 06:05 Dose: 120 mg Famotidine (Pepcid) 40 mg PO HS [facility] Stop: 08/25/18 21:01 Last Admin: 02/23/18 21:53 Dose: 40 mg Glucagon (Glucagen) 1 mg IM ONCE PRN PRN Reason: Hypoglycemia Stop: 08/25/18 15:20 Glucose (Gluctose) 15 gm PO ONCE PRN PRN Reason: Hypoglycemia Stop: 08/25/18 15:20 Glucose (Gluctose) 30 gm PO ONCE PRN PRN Reason: Hypoglycemia Stop: 08/25/18 15:20 Dextrose (Dextrose 5%) 1,000 mls @ 100 mls/hr IVC .Q10H PRN PRN Reason: HYPOGLYCEMIA Stop: 08/25/18 15:20 Lisinopril (Zestril) 10 mg PO QAM [facility] PRN Reason: Protocol Stop: 08/26/18 09:01 Last Admin: 02/24/18 08:10 Dose: 10 mg Lisinopril (Zestril) 20 mg PO QPM [facility] PRN Reason: Protocol Stop: 08/25/18 18:01 Last Admin: 02/23/18 19:37 Dose: 20 mg Metoprolol Tartrate (Lopressor) 50 mg PO BID [facility] Stop: 08/25/18 21:01 Last Admin: 02/24/18 08:10 Dose: 50 mg Montelukast Sodium (Singulair) 10 mg PO DAILY [facility] Stop: 08/26/18 09:01 Last Admin: 02/24/18 08:10 Dose: 10 mg Morphine Sulfate (Morphine Sulfate) 2 mg IVP Q4HR PRN; Protocol PRN Reason: Moderate Pain Stop: 08/25/18 15:53 Last Admin: 02/24/18 11:57 Dose: 2 mg Naloxone HCl (Narcan) 0.4 mg IVP Q2MIN PRN PRN Reason: SEE COMMENTS Stop: 08/25/18 15:10 Nitroglycerin (Nitroglycerin) 0.4 mg SL Q5MIN PRN PRN Reason: Chest Pain Stop: 08/25/18 13:49 Last Admin: 02/23/18 14:11 Dose: 0.4 mg Pharmacy Profile Note (Patient Taking Own Medication) 0 each IH DAILY [facility] Stop: 08/26/18 09:01 Last Admin: 02/24/18 08:10 Dose: Not Given Pharmacy Profile Note (Patient Taking Own Medication) 1 each SQ CONT [facility] Stop: 08/25/18 16:01 Last Admin: 02/23/18 20:02 Dose: Not Given Pregabalin (Lyrica) 200 mg PO QAM [facility] Stop: 08/26/18 09:01 Last Admin: 02/24/18 08:10 Dose: 200 mg Pregabalin (Lyrica) 300 mg PO QPM [facility] Stop: 08/25/18 18:01 Last Admin: 02/23/18 21:50 Dose: 300 mg Simvastatin (Zocor) 20 mg PO HS [facility] PRN Reason: Protocol Stop: 08/25/18 21:01 Last Admin: 02/23/18 21:49 Dose: 20 mg - Imaging and Cardiology Stress Test: report reviewed Echo: report reviewed Other Results: 12 hour tele: avg HR=65 SR. No events. - EKG Interpretation EKG results cardiology: personally reviewed Consult Discharge Plan - Plan Referrals: Copoer Torrez MD [Primary Care Provider] -
[2018-02-24] MEDS ORDERED: ISOVUE-370 200 ML INFUS..BTL IV ONE (13:35)
[2018-02-24] MEDS ORDERED: Nitroglycerin 1,000 MCG/10 ML VIAL IV ONE (13:35)
[2018-02-24] MEDS ORDERED: Heparin 1,000 UNITS/500 mL 500 ML ONE (13:35)
[2018-02-24] MEDS ORDERED: 0.9 % Sodium Chloride 1,000 ML ONE ×2 (13:35→13:44)
[2018-02-24] MEDS ORDERED: *HR* Heparin 10,000 UNIT/10 ML VIAL ONE (13:35)
[2018-02-24] MEDS ORDERED: *HR* Midazolam HCl 2 MG/2 ML VIAL ONE (14:10)
[2018-02-24] MEDS ORDERED: *HR* FentaNYL (PF) 100 MCG/2 ML VIAL ONE (14:10)
--- NOTE | 2018-02-24 14:24 | Pre-Sedation Evaluation ---
Pre-sedation evaluation - Pre-sedation checklist Date of procedure: 02/24/18 Procedure: C Recent Vitals: Last Vital Signs Temp 98.3 F 02/24/18 12:06 Pulse 70 02/24/18 12:06 Resp 15 02/24/18 12:06 BP 124/82 02/24/18 12:06 Pulse Ox 97 02/24/18 12:06 Previous reaction to sedatives/anesthetics: No Dietary Status: No solid food in preceding 4 hrs and no liquid in preceding 2 hrs Dentition: No loose teeth or bridges ASA Classification *see protocol: CLASS II-Mild systemic disease Cardiac Registry (Cardio Only) - Functional Capacity Functional Capacity: >=4 METS with symptoms - Clincal Frailty Scale Clinical Frailty Scale: Vulnerable
--- NOTE | 2018-02-24 14:42 | Event Note ---
Date of Encounter: 02/24/18 Time of Encounter: 14:40 - Cardiology Event Note Prelim [facility] findings with Dr. Hester--normal coronary arteries. No further inpatient testing from Cardiology, will sign-off. Recommend further evaluation from primary team to work up non-cardiac causes of chest pain. Recommend close outpatient follow-up with PCP. Discussed and reviewed with Dr. Cody.
--- NOTE | 2018-02-24 14:52 | Discharge Summary ---
Orders not resulted at time of discharge: Pending orders 02/24/18 13:09 CL Cardiac Catheterization [CL] Routine Date of Encounter: 02/24/18 Time of Encounter: 15:00 - Discharge Diagnosis (1) Unstable angina Priority: Primary Status: Acute Assessment and Plan: 47 year old female with pmh of morbid obesity, hypertension, asthma, diabetes presenting with complaints of chest pain intermittently for the past 3 months that acutely got worse today. Pain has been associated with shortness of breath on minimal exertion. Patient notes her family physician sent her to get an echo , a CT chest and a stress test due to this intermittent chest pain. After the 1st part of the nuclear stress test today, she began to experience worsening chest pain which she described as a left sided squeezing tightness constant and radiating to the neck. She says the pain was associated with shortness of breath. She had some relief with rest and she was referred to the ER. She was assessed with unstable angina s/p coming in with ongoing left sided chest pain after first part of her nuclear stress test.She was started on full dose anticoagulation with lovenox, continue aspirin and beta blockers. She completed the 2nd part of stress test the following day showing medium, mild- moderate intensity perfusion defect anterior/anteroseptal segments, gated EF=59% . Cardiology did a left heart catheterization which came back WNL. She was cleared for discharge and discharged in a stable condition. 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 Martinez is a 47 year old female - Time Spent with Patient Total time spent providing and/or coordinating discharge services: - Discharge Medications Home Medications: Amitriptyline [Elavil] 100 mg PO HS 08/15/15 [History] Aspirin [Adult Low Dose Aspirin EC] 81 mg PO DAILY 08/15/15 [History] Cetirizine HCl [Zyrtec] 10 mg PO HS 08/15/15 [History] Cholecalciferol (Vitamin D3) [Dialyvite Vitamin D] 5,000 unit PO DAILY 08/15/15 [History] Duloxetine HCl [Cymbalta] 120 mg PO DAILY 08/15/15 [History] HYDROcodone/Acet 10/325 mg [[place] 10-325 mg] 1 each PO Q6H PRN 08/15/15 [History ] Lisinopril [Zestril] 10 mg PO QAM 08/15/15 [History] Omeprazole [PriLOSEC] 40 mg PO QAM 08/15/15 [History] Simvastatin [Zocor] 20 mg PO HS 08/15/15 [History] raNITIdine HCl [Zantac] 300 mg PO HS 08/15/15 [History] BuPROPion SR (12 HR) [Wellbutrin SR] 150 mg PO BID 06/16/16 [History] Lisinopril [Zestril] 20 mg PO QPM 06/16/16 [History] Metformin HCl [Glucophage] 1,000 mg PO BID 06/16/16 [History] Metoprolol [Lopressor] 50 mg PO BID 06/16/16 [History] Pregabalin [Lyrica] 200 mg PO QAM 06/16/16 [History] Pregabalin [Lyrica] 300 mg PO QPM 06/16/16 [History] Albuterol Sulfate [Ventolin Hfa] 2 puff IH Q4H PRN 02/23/18 [History] Fluticasone Propionate Nasal [Flonase] 1 spr NS DAILY 02/23/18 [History] Fluticasone/Vilanterol [Breo Ellipta 100-25 Mcg INH] 1 puff IH DAILY 02/23/18 [ History] Montelukast [Singulair] 10 mg PO DAILY 02/23/18 [History] Subcutaneous Insulin Pump [T:Slim] 1 each MC CONT 02/23/18 [History] Empagliflozin [Jardiance] 25 mg PO DAILY 02/24/18 [History] Allergies/Adverse Reactions: 3 Allergy/AdvReac Type Severity Reaction Status Date / Time Amoxicillin [From Augmentin] Allergy Rash Verified 04/30/15 12:54 cephalexin [From Keflex] Allergy Rash Verified 04/30/15 12:54 clavulanic acid Allergy Rash Verified 04/30/15 12:54 [From Augmentin] exenatide [From Bydureon] Allergy Swelling Verified 04/30/15 12:54 of Lip/Tongue/Throat frovatriptan [From Frova] Allergy Palpitation Verified 04/30/15 12:54 s ketorolac [From Toradol] Allergy Anaphylaxis Verified 04/30/15 12:54 Medroxyprogesterone Allergy Rash Verified 04/30/15 12:54 [From Provera] metronidazole [From Flagyl] Allergy Headache Verified 04/30/15 12:54 ondansetron Allergy Anaphylaxis Verified 04/30/15 12:54 [From Zofran (as hydrochloride)] Oxycodone Allergy Difficulty Verified 04/30/15 12:54 Breathing Sulfa (Sulfonamide Allergy Rash Verified 04/30/15 12:54 Antibiotics) Verapamil Allergy Palpitation Verified 04/30/15 12:54 s Date of admission: 02/23/18 14:54 Primary care physician: Cooper Torrez MD Consults: 02/23/18 15:12 Consult to Cardiology [CONS] Routine Comment: Consulting Provider: Cardiology [facility] Reason for Consult: chest pain s/p stress test Call Completed: Yes - Constitutional Vitals: Temp Pulse Resp BP Pulse Ox 98.3 F 70 15 124/82 97 02/24/18 12:06 02/24/18 12:06 02/24/18 12:06 02/24/18 12:06 02/24/18 12:06 General appearance: Present: A&O X 3 Exam: Gen - Awake, alert, oriented x 3, no acute distress HEENT - NCAT, PERRLA, EOMI, hearing grossly intact, oropharynx benign CV - RRR, normal S1 and S2, no M/R/G, no BLE edema Resp - Normal WOB, CTAB, no W/R/R GI - Soft, NT/ND, no masses, normal bowel sounds, Skin - Warm, dry, no rashes/lesions/ulcers Psych - Normal mood and affect, no depression or anxiety - Patient Status Disposition: Home, Self-Care Condition: Good - Discharge Instructions Instructions: Chest Pain (DC), Heart Healthy Diet (DC), Meal Planning with Diabetes Exchanges (DC) Follow Up With: Cooper Torrez MD [Primary Care Provider] - (Our offices will call you with a follow up appointment. If you do not hear from us, please feel free to call us and schedule an appointment. Thank you.) Additional Instructions: RISK FACTORS: STOP SMOKING: If you smoke, STOP. Smoking or tobacco use significantly increases your risk of heart disease because nicotine causes the arteries to narrow or constrict. It also causes fats to stick to the artery. Your chances of having a heart attack are greatly increased if you continue to smoke. For more information, call the education line for smoking cessation 5-647-JGVRRTT EAT A LOW FAT/CHOLESTEROL/SODIUM DIET: This diet may help reduce your chances of having a heart attack. LIFTING: Avoid lifting anything more than 10 pounds for 5-7 days Prior to straining, laughing, sneezing and/or coughing, apply manual pressure directly over insertion site. ACTIVITY: You may walk or climb stairs as tolerated You can resume sexual activity as tolerated In general, you are encouraged to engage in a minimum of 30 minutes or more of moderate intensity physical activity, such as brisk walking, daily or at least 3 -4 times weekly BATHING Do not submerge the site into water (bath tub, hot tub, swimming pool) for 1 week. This can be a source for infection into the blood stream. You may shower after 24 hours SITE CARE: After 24 hours, you may remove the dressing and leave the site open to air. Keep the site clean and dry. Clean gently and pat dry. You can expect bruising and tenderness that gradually resolve within a week or two. Return to work as instructed per your physician Resume driving as instructed per physician Keep all scheduled follow up appointments Resume medications as instructed IMPORTANT: If prescribed a Platelet Aggregation Inhibitor such as, Plavix, Brilinta or Effient: Duration of therapy is minimum one year These medications are often used in combination with Aspirin in prevention of future heart attacks Never discontinue unless consult with your Adult Manager STROKE (CVA) Risk factors for a stroke are: Age, cigarette smoking, diabetes, excessive alcohol consumption, family history, high blood pressure, overweight, physical inactivity, prior stroke, heart attack, diagnosis of carotid artery stenosis or other artery disease. Warning signs: Sudden numbness or weakness of the face, arm or leg; especially on one side of the body, sudden confusion, trouble speaking or understanding, sudden trouble seeing in one or both eyes, sudden trouble walking, dizziness, loss of balance or coordination, sudden severe headache with no cause. Call 911 or go to the Emergency Room. CONGESTIVE HEART FAILURE: If you have been diagnosed with Congestive Heart Failure (CHF) and your symptoms return, make an appointment with your physician Weigh yourself daily. Notify your physician if you have a weight gain of two or more pounds in one day or five or more pounds in one week. If you experience any difficulty breathing, please call 911 BLEEDING: Although the risk of bleeding is minimal, it can happen. If you have any bleeding from the site, apply firm pressure above the puncture site for 10-15 minutes. If the bleeding does not stop, continue manual pressure and call 911 Contact your physician if: You develop a fever greater than 101 degrees Fahrenheit Your site becomes reddened or has any drainage You have an increase in pain or burning at the site or if a large knot forms at the site. If you experience chest pain, shortness of breath, dizziness, or extreme tiredness, stop the activity and rest. Please notify your physicians office if you experience any of these symptoms and they are not relieved by rest please call 911!
--- NOTE | 2018-02-24 14:57 | Invasive Diagnostic Lab Proc ---
Name: Katya Martinez Date of Study: 02/24/2018 Date: 1970 Ht: 65.0in Medical Record#: [id number] Age: 47 Wt: 270.73lb Gender: Female BSA: 2.25 Order #: [id number] BMI: 45.11 Physicians Procedure Physician: Kit Hester MD Referring MD: Referring MD: Staff Name Position Time In Berry, Ankur RN Retail Sales Associate 01:39 PM Thee Duque RT (R) Monitor 01:39 PM Nakia Mckeon RT (R) Scrub 01:39 PM Indications Indication Abnormal Test - Stress Procedures Performed Procedure L HRT ARTERY/VENTRICLE ANGIO Pre-Procedure Checklist Informed consent is complete signed and on chart. H&P is on chart. ID band is on and ID verified with patient. Patient NPO for procedure The procedure was described for the patient and questions were answered. Blood Pressure: 124/82 ECG is on chart. Rhythm: NSR Plan of Care Patient will tolerate the procedure without complications. Adequate level of comfort will be maintained. Hemodynamics will remain stable Patient will recover from procedure without complications. Respiratory function will be maintained. Cardiac rhythm will remain stable. Patient temperature will be maintained. Patient and/or family have verbalized understanding of the procedure. Patient Education Chief Complaint/Reason for Test: Cardiac Cath Developmental Category: Adult (18-64 years) Developmentally Appropriate for Age: Yes Learning Barriers: None Education Needs: Procedure Education Method: Verbal Information Taught: Cardiac Cath Educational Evaluation: Able to repeat information Intravenous Access Time IV Size Location DC'd Fluid/Drip Rate Units RN 01:36 PM 20g 1 /" Patent On Arrival Rt Arm 0.9NaCl 25 ml/hr Callie Hernandez RN Allergies PCN,CEPHALOSPORINS,SULFA,OXYCODONE,PROVERA,FLAGYL- PCN,CEPHALOSPORINS,SULFA,OXYCODONE,PROVERA,FLAGYL- PCN,CEPHALOSPORINS,SULFA,OXYCODONE,PROVERA,FLAGYL- PCN,CEPHALOSPORINS,SULFA,OXYCODONE,PROVERA,FLAGYL- PCN,CEPHALOSPORINS,SULFA,OXYCODONE,PROVERA,FLAGYL- PCN,CEPHALOSPORINS,SULFA,OXYCODONE,PROVERA,FLAGYL- PCN,CEPHALOSPORINS,SULFA,OXYCODONE,PROVERA,FLAGYL- PCN,CEPHALOSPORINS,SULFA,OXYCODONE,PROVERA,FLAGYL- PCN,CEPHALOSPORINS,SULFA,OXYCODONE,PROVERA,FLAGYL- PCN,CEPHALOSPORINS,SULFA,OXYCODONE,PROVERA,FLAGYL- PCN,CEPHALOSPORINS,SULFA,OXYCODONE,PROVERA,FLAGYL- PCN,CEPHALOSPORINS,SULFA,OXYCODONE,PROVERA,FLAGYL- PCN,CEPHALOSPORINS,SULFA,OXYCODONE,PROVERA,FLAGYL- PCN,CEPHALOSPORINS,SULFA,OXYCODONE,PROVERA,FLAGYL- PCN,CEPHALOSPORINS,SULFA,OXYCODONE,PROVERA,FLAGYL- PCN,CEPHALOSPORINS,SULFA,OXYCODONE,PROVERA,FLAGYL- PCN,CEPHALOSPORINS,SULFA,OXYCODONE,PROVERA,FLAGYL- PCN,CEPHALOSPORINS,SULFA,OXYCODONE,PROVERA,FLAGYL- PCN,CEPHALOSPORINS,SULFA,OXYCODONE,PROVERA,FLAGYL- PCN,CEPHALOSPORINS,SULFA,OXYCODONE,PROVERA,FLAGYL- PCN,CEPHALOSPORINS,SULFA,OXYCODONE,PROVERA,FLAGYL- PCN,CEPHALOSPORINS,SULFA,OXYCODONE,PROVERA,FLAGYL- PCN,CEPHALOSPORINS,SULFA,OXYCODONE,PROVERA,FLAGYL- PCN,CEPHALOSPORINS,SULFA,OXYCODONE,PROVERA,FLAGYL- PCN,CEPHALOSPORINS,SULFA,OXYCODONE,PROVERA,FLAGYL- PCN,CEPHALOSPORINS,SULFA,OXYCODONE,PROVERA,FLAGYL- PCN,CEPHALOSPORINS,SULFA,OXYCODONE,PROVERA,FLAGYL- PCN,CEPHALOSPORINS,SULFA,OXYCODONE,PROVERA,FLAGYL- PCN,CEPHALOSPORINS,SULFA,OXYCODONE,PROVERA,FLAGYL- PCN,CEPHALOSPORINS,SULFA,OXYCODONE,PROVERA,FLAGYL- PCN,CEPHALOSPORINS,SULFA,OXYCODONE,PROVERA,FLAGYL- PCN,CEPHALOSPORINS,SULFA,OXYCODONE,PROVERA,FLAGYL- PCN,CEPHALOSPORINS,SULFA,OXYCODONE,PROVERA,FLAGYL- PCN,CEPHALOSPORINS,SULFA,OXYCODONE,PROVERA,FLAGYL- PCN,CEPHALOSPORINS,SULFA,OXYCODONE,PROVERA,FLAGYL- PCN,CEPHALOSPORINS,SULFA,OXYCODONE,PROVERA,FLAGYL- PCN,CEPHALOSPORINS,SULFA,OXYCODONE,PROVERA,FLAGYL- PCN,CEPHALOSPORINS,SULFA,OXYCODONE,PROVERA,FLAGYL- PCN,CEPHALOSPORINS,SULFA,OXYCODONE,PROVERA,FLAGYL- PCN,CEPHALOSPORINS,SULFA,OXYCODONE,PROVERA,FLAGYL- PCN,CEPHALOSPORINS,SULFA,OXYCODONE,PROVERA,FLAGYL- PCN,CEPHALOSPORINS,SULFA,OXYCODONE,PROVERA,FLAGYL- PCN,CEPHALOSPORINS,SULFA,OXYCODONE,PROVERA,FLAGYL- PCN,CEPHALOSPORINS,SULFA,OXYCODONE,PROVERA,FLAGYL- PCN,CEPHALOSPORINS,SULFA,OXYCODONE,PROVERA,FLAGYL- PCN,CEPHALOSPORINS,SULFA,OXYCODONE,PROVERA,FLAGYL- PCN,CEPHALOSPORINS,SULFA,OXYCODONE,PROVERA,FLAGYL- PCN,CEPHALOSPORINS,SULFA,OXYCODONE,PROVERA,FLAGYL- PCN,CEPHALOSPORINS,SULFA,OXYCODONE,PROVERA,FLAGYL- PCN,CEPHALOSPORINS,SULFA,OXYCODONE,PROVERA,FLAGYL- PCN,CEPHALOSPORINS,SULFA,OXYCODONE,PROVERA,FLAGYL- PCN,CEPHALOSPORINS,SULFA,OXYCODONE,PROVERA,FLAGYL- PCN,CEPHALOSPORINS,SULFA,OXYCODONE,PROVERA,FLAGYL- PCN,CEPHALOSPORINS,SULFA,OXYCODONE,PROVERA,FLAGYL- PCN,CEPHALOSPORINS,SULFA,OXYCODONE,PROVERA,FLAGYL- PCN,CEPHALOSPORINS,SULFA,OXYCODONE,PROVERA,FLAGYL- PCN,CEPHALOSPORINS,SULFA,OXYCODONE,PROVERA,FLAGYL- PCN,CEPHALOSPORINS,SULFA,OXYCODONE,PROVERA,FLAGYL- PCN,CEPHALOSPORINS,SULFA,OXYCODONE,PROVERA,FLAGYL- PCN,CEPHALOSPORINS,SULFA,OXYCODONE,PROVERA,FLAGYL- PCN,CEPHALOSPORINS,SULFA,OXYCODONE,PROVERA,FLAGYL- PCN,CEPHALOSPORINS,SULFA,OXYCODONE,PROVERA,FLAGYL- PCN,CEPHALOSPORINS,SULFA,OXYCODONE,PROVERA,FLAGYL- PCN,CEPHALOSPORINS,SULFA,OXYCODONE,PROVERA,FLAGYL- PCN,CEPHALOSPORINS,SULFA,OXYCODONE,PROVERA,FLAGYL- PCN,CEPHALOSPORINS,SULFA,OXYCODONE,PROVERA,FLAGYL- PCN,CEPHALOSPORINS,SULFA,OXYCODONE,PROVERA,FLAGYL- PCN,CEPHALOSPORINS,SULFA,OXYCODONE,PROVERA,FLAGYL- PCN,CEPHALOSPORINS,SULFA,OXYCODONE,PROVERA,FLAGYL- PCN,CEPHALOSPORINS,SULFA,OXYCODONE,PROVERA,FLAGYL- PCN,CEPHALOSPORINS,SULFA,OXYCODONE,PROVERA,FLAGYL- PCN,CEPHALOSPORINS,SULFA,OXYCODONE,PROVERA,FLAGYL- PCN,CEPHALOSPORINS,SULFA,OXYCODONE,PROVERA,FLAGYL- PCN,CEPHALOSPORINS,SULFA,OXYCODONE,PROVERA,FLAGYL- PCN,CEPHALOSPORINS,SULFA,OXYCODONE,PROVERA,FLAGYL- PCN,CEPHALOSPORINS,SULFA,OXYCODONE,PROVERA,FLAGYL- PCN,CEPHALOSPORINS,SULFA,OXYCODONE,PROVERA,FLAGYL- PCN,CEPHALOSPORINS,SULFA,OXYCODONE,PROVERA,FLAGYL- PCN,CEPHALOSPORINS,SULFA,OXYCODONE,PROVERA,FLAGYL- PCN,CEPHALOSPORINS,SULFA,OXYCODONE,PROVERA,FLAGYL- PCN,CEPHALOSPORINS,SULFA,OXYCODONE,PROVERA,FLAGYL- PCN,CEPHALOSPORINS,SULFA,OXYCODONE,PROVERA,FLAGYL- PCN,CEPHALOSPORINS,SULFA,OXYCODONE,PROVERA,FLAGYL- PCN,CEPHALOSPORINS,SULFA,OXYCODONE,PROVERA,FLAGYL- PCN,CEPHALOSPORINS,SULFA,OXYCODONE,PROVERA,FLAGYL- PCN,CEPHALOSPORINS,SULFA,OXYCODONE,PROVERA,FLAGYL- PCN,CEPHALOSPORINS,SULFA,OXYCODONE,PROVERA,FLAGYL- PCN,CEPHALOSPORINS,SULFA,OXYCODONE,PROVERA,FLAGYL- PCN,CEPHALOSPORINS,SULFA,OXYCODONE,PROVERA,FLAGYL- PCN,CEPHALOSPORINS,SULFA,OXYCODONE,PROVERA,FLAGYL- PCN,CEPHALOSPORINS,SULFA,OXYCODONE,PROVERA,FLAGYL- PCN,CEPHALOSPORINS,SULFA,OXYCODONE,PROVERA,FLAGYL- PCN,CEPHALOSPORINS,SULFA,OXYCODONE,PROVERA,FLAGYL- PCN,CEPHALOSPORINS,SULFA,OXYCODONE,PROVERA,FLAGYL- PCN,CEPHALOSPORINS,SULFA,OXYCODONE,PROVERA,FLAGYL- PCN,CEPHALOSPORINS,SULFA,OXYCODONE,PROVERA,FLAGYL- PCN,CEPHALOSPORINS,SULFA,OXYCODONE,PROVERA,FLAGYL- PCN,CEPHALOSPORINS,SULFA,OXYCODONE,PROVERA,FLAGYL- PCN,CEPHALOSPORINS,SULFA,OXYCODONE,PROVERA,FLAGYL- PCN,CEPHALOSPORINS,SULFA,OXYCODONE,PROVERA,FLAGYL- PCN,CEPHALOSPORINS,SULFA,OXYCODONE,PROVERA,FLAGYL- PCN,CEPHALOSPORINS,SULFA,OXYCODONE,PROVERA,FLAGYL- PCN,CEPHALOSPORINS,SULFA,OXYCODONE,PROVERA,FLAGYL- PCN,CEPHALOSPORINS,SULFA,OXYCODONE,PROVERA,FLAGYL- PCN,CEPHALOSPORINS,SULFA,OXYCODONE,PROVERA,FLAGYL- PCN,CEPHALOSPORINS,SULFA,OXYCODONE,PROVERA,FLAGYL- PCN,CEPHALOSPORINS,SULFA,OXYCODONE,PROVERA,FLAGYL- PCN,CEPHALOSPORINS,SULFA,OXYCODONE,PROVERA,FLAGYL- PCN,CEPHALOSPORINS,SULFA,OXYCODONE,PROVERA,FLAGYL- PCN,CEPHALOSPORINS,SULFA,OXYCODONE,PROVERA,FLAGYL- PCN,CEPHALOSPORINS,SULFA,OXYCODONE,PROVERA,FLAGYL- PCN,CEPHALOSPORINS,SULFA,OXYCODONE,PROVERA,FLAGYL- PCN,CEPHALOSPORINS,SULFA,OXYCODONE,PROVERA,FLAGYL- PCN,CEPHALOSPORINS,SULFA,OXYCODONE,PROVERA,FLAGYL- PCN,CEPHALOSPORINS,SULFA,OXYCODONE,PROVERA,FLAGYL- PCN,CEPHALOSPORINS,SULFA,OXYCODONE,PROVERA,FLAGYL- PCN,CEPHALOSPORINS,SULFA,OXYCODONE,PROVERA,FLAGYL- PCN,CEPHALOSPORINS,SULFA,OXYCODONE,PROVERA,FLAGYL- PCN,CEPHALOSPORINS,SULFA,OXYCODONE,PROVERA,FLAGYL- PCN,CEPHALOSPORINS,SULFA,OXYCODONE,PROVERA,FLAGYL- PCN,CEPHALOSPORINS,SULFA,OXYCODONE,PROVERA,FLAGYL- PCN,CEPHALOSPORINS,SULFA,OXYCODONE,PROVERA,FLAGYL- PCN,CEPHALOSPORINS,SULFA,OXYCODONE,PROVERA,FLAGYL- PCN,CEPHALOSPORINS,SULFA,OXYCODONE,PROVERA,FLAGYL- PCN,CEPHALOSPORINS,SULFA,OXYCODONE,PROVERA,FLAGYL- PCN,CEPHALOSPORINS,SULFA,OXYCODONE,PROVERA,FLAGYL- PCN,CEPHALOSPORINS,SULFA,OXYCODONE,PROVERA,FLAGYL- PCN,CEPHALOSPORINS,SULFA,OXYCODONE,PROVERA,FLAGYL- PCN,CEPHALOSPORINS,SULFA,OXYCODONE,PROVERA,FLAGYL- PCN,CEPHALOSPORINS,SULFA,OXYCODONE,PROVERA,FLAGYL- PCN,CEPHALOSPORINS,SULFA,OXYCODONE,PROVERA,FLAGYL- PCN,CEPHALOSPORINS,SULFA,OXYCODONE,PROVERA,FLAGYL- PCN,CEPHALOSPORINS,SULFA,OXYCODONE,PROVERA,FLAGYL- PCN,CEPHALOSPORINS,SULFA,OXYCODONE,PROVERA,FLAGYL- PCN,CEPHALOSPORINS,SULFA,OXYCODONE,PROVERA,FLAGYL- PCN,CEPHALOSPORINS,SULFA,OXYCODONE,PROVERA,FLAGYL- PCN,CEPHALOSPORINS,SULFA,OXYCODONE,PROVERA,FLAGYL- PCN,CEPHALOSPORINS,SULFA,OXYCODONE,PROVERA,FLAGYL- PCN,CEPHALOSPORINS,SULFA,OXYCODONE,PROVERA,FLAGYL- PCN,CEPHALOSPORINS,SULFA,OXYCODONE,PROVERA,FLAGYL- PCN,CEPHALOSPORINS,SULFA,OXYCODONE,PROVERA,FLAGYL- PCN,CEPHALOSPORINS,SULFA,OXYCODONE,PROVERA,FLAGYL- PCN,CEPHALOSPORINS,SULFA,OXYCODONE,PROVERA,FLAGYL- PCN,CEPHALOSPORINS,SULFA,OXYCODONE,PROVERA,FLAGYL- PCN,CEPHALOSPORINS,SULFA,OXYCODONE,PROVERA,FLAGYL- PCN,CEPHALOSPORINS,SULFA,OXYCODONE,PROVERA,FLAGYL- PCN,CEPHALOSPORINS,SULFA,OXYCODONE,PROVERA,FLAGYL- PCN,CEPHALOSPORINS,SULFA,OXYCODONE,PROVERA,FLAGYL- PCN,CEPHALOSPORINS,SULFA,OXYCODONE,PROVERA,FLAGYL- PCN,CEPHALOSPORINS,SULFA,OXYCODONE,PROVERA,FLAGYL- PCN,CEPHALOSPORINS,SULFA,OXYCODONE,PROVERA,FLAGYL- PCN,CEPHALOSPORINS,SULFA,OXYCODONE,PROVERA,FLAGYL- PCN,CEPHALOSPORINS,SULFA,OXYCODONE,PROVERA,FLAGYL- PCN,CEPHALOSPORINS,SULFA,OXYCODONE,PROVERA,FLAGYL- PCN,CEPHALOSPORINS,SULFA,OXYCODONE,PROVERA,FLAGYL- PCN,CEPHALOSPORINS,SULFA,OXYCODONE,PROVERA,FLAGYL- PCN,CEPHALOSPORINS,SULFA,OXYCODONE,PROVERA,FLAGYL- PCN,CEPHALOSPORINS,SULFA,OXYCODONE,PROVERA,FLAGYL- PCN,CEPHALOSPORINS,SULFA,OXYCODONE,PROVERA,FLAGYL- PCN,CEPHALOSPORINS,SULFA,OXYCODONE,PROVERA,FLAGYL- PCN,CEPHALOSPORINS,SULFA,OXYCODONE,PROVERA,FLAGYL- PCN,CEPHALOSPORINS,SULFA,OXYCODONE,PROVERA,FLAGYL- PCN,CEPHALOSPORINS,SULFA,OXYCODONE,PROVERA,FLAGYL- PCN,CEPHALOSPORINS,SULFA,OXYCODONE,PROVERA,FLAGYL- PCN,CEPHALOSPORINS,SULFA,OXYCODONE,PROVERA,FLAGYL- PCN,CEPHALOSPORINS,SULFA,OXYCODONE,PROVERA,FLAGYL- PCN,CEPHALOSPORINS,SULFA,OXYCODONE,PROVERA,FLAGYL- PCN,CEPHALOSPORINS,SULFA,OXYCODONE,PROVERA,FLAGYL- PCN,CEPHALOSPORINS,SULFA,OXYCODONE,PROVERA,FLAGYL- PCN,CEPHALOSPORINS,SULFA,OXYCODONE,PROVERA,FLAGYL- PCN,CEPHALOSPORINS,SULFA,OXYCODONE,PROVERA,FLAGYL- PCN,CEPHALOSPORINS,SULFA,OXYCODONE,PROVERA,FLAGYL- PCN,CEPHALOSPORINS,SULFA,OXYCODONE,PROVERA,FLAGYL- PCN,CEPHALOSPORINS,SULFA,OXYCODONE,PROVERA,FLAGYL- PCN,CEPHALOSPORINS,SULFA,OXYCODONE,PROVERA,FLAGYL- PCN,CEPHALOSPORINS,SULFA,OXYCODONE,PROVERA,FLAGYL- PCN,CEPHALOSPORINS,SULFA,OXYCODONE,PROVERA,FLAGYL- PCN,CEPHALOSPORINS,SULFA,OXYCODONE,PROVERA,FLAGYL- PCN,CEPHALOSPORINS,SULFA,OXYCODONE,PROVERA,FLAGYL- PCN,CEPHALOSPORINS,SULFA,OXYCODONE,PROVERA,FLAGYL- PCN,CEPHALOSPORINS,SULFA,OXYCODONE,PROVERA,FLAGYL- PCN,CEPHALOSPORINS,SULFA,OXYCODONE,PROVERA,FLAGYL- PCN,CEPHALOSPORINS,SULFA,OXYCODONE,PROVERA,FLAGYL- PCN,CEPHALOSPORINS,SULFA,OXYCODONE,PROVERA,FLAGYL- PCN,CEPHALOSPORINS,SULFA,OXYCODONE,PROVERA,FLAGYL- PCN,CEPHALOSPORINS,SULFA,OXYCODONE,PROVERA,FLAGYL- PCN,CEPHALOSPORINS,SULFA,OXYCODONE,PROVERA,FLAGYL- PCN,CEPHALOSPORINS,SULFA,OXYCODONE,PROVERA,FLAGYL- PCN,CEPHALOSPORINS,SULFA,OXYCODONE,PROVERA,FLAGYL- PCN,CEPHALOSPORINS,SULFA,OXYCODONE,PROVERA,FLAGYL- PCN,CEPHALOSPORINS,SULFA,OXYCODONE,PROVERA,FLAGYL- PCN,CEPHALOSPORINS,SULFA,OXYCODONE,PROVERA,FLAGYL- PCN,CEPHALOSPORINS,SULFA,OXYCODONE,PROVERA,FLAGYL- PCN,CEPHALOSPORINS,SULFA,OXYCODONE,PROVERA,FLAGYL- PCN,CEPHALOSPORINS,SULFA,OXYCODONE,PROVERA,FLAGYL- PCN,CEPHALOSPORINS,SULFA,OXYCODONE,PROVERA,FLAGYL- PCN,CEPHALOSPORINS,SULFA,OXYCODONE,PROVERA,FLAGYL- PCN,CEPHALOSPORINS,SULFA,OXYCODONE,PROVERA,FLAGYL- PCN,CEPHALOSPORINS,SULFA,OXYCODONE,PROVERA,FLAGYL- PCN,CEPHALOSPORINS,SULFA,OXYCODONE,PROVERA,FLAGYL- PCN,CEPHALOSPORINS,SULFA,OXYCODONE,PROVERA,FLAGYL- PCN,CEPHALOSPORINS,SULFA,OXYCODONE,PROVERA,FLAGYL- PCN,CEPHALOSPORINS,SULFA,OXYCODONE,PROVERA,FLAGYL- PCN,CEPHALOSPORINS,SULFA,OXYCODONE,PROVERA,FLAGYL- PCN,CEPHALOSPORINS,SULFA,OXYCODONE,PROVERA,FLAGYL- PCN,CEPHALOSPORINS,SULFA,OXYCODONE,PROVERA,FLAGYL- PCN,CEPHALOSPORINS,SULFA,OXYCODONE,PROVERA,FLAGYL- PCN,CEPHALOSPORINS,SULFA,OXYCODONE,PROVERA,FLAGYL- PCN,CEPHALOSPORINS,SULFA,OXYCODONE,PROVERA,FLAGYL- PCN,CEPHALOSPORINS,SULFA,OXYCODONE,PROVERA,FLAGYL- PCN,CEPHALOSPORINS,SULFA,OXYCODONE,PROVERA,FLAGYL- PCN,CEPHALOSPORINS,SULFA,OXYCODONE,PROVERA,FLAGYL- PCN,CEPHALOSPORINS,SULFA,OXYCODONE,PROVERA,FLAGYL- PCN,CEPHALOSPORINS,SULFA,OXYCODONE,PROVERA,FLAGYL- PCN,CEPHALOSPORINS,SULFA,OXYCODONE,PROVERA,FLAGYL- PCN,CEPHALOSPORINS,SULFA,OXYCODONE,PROVERA,FLAGYL- PCN,CEPHALOSPORINS,SULFA,OXYCODONE,PROVERA,FLAGYL- PCN,CEPHALOSPORINS,SULFA,OXYCODONE,PROVERA,FLAGYL- PCN,CEPHALOSPORINS,SULFA,OXYCODONE,PROVERA,FLAGYL- PCN,CEPHALOSPORINS,SULFA,OXYCODONE,PROVERA,FLAGYL- PCN,CEPHALOSPORINS,SULFA,OXYCODONE,PROVERA,FLAGYL- PCN,CEPHALOSPORINS,SULFA,OXYCODONE,PROVERA,FLAGYL- PCN,CEPHALOSPORINS,SULFA,OXYCODONE,PROVERA,FLAGYL- PCN,CEPHALOSPORINS,SULFA,OXYCODONE,PROVERA,FLAGYL- PCN,CEPHALOSPORINS,SULFA,OXYCODONE,PROVERA,FLAGYL- PCN,CEPHALOSPORINS,SULFA,OXYCODONE,PROVERA,FLAGYL- PCN,CEPHALOSPORINS,SULFA,OXYCODONE,PROVERA,FLAGYL- PCN,CEPHALOSPORINS,SULFA,OXYCODONE,PROVERA,FLAGYL- PCN,CEPHALOSPORINS,SULFA,OXYCODONE,PROVERA,FLAGYL- PCN,CEPHALOSPORINS,SULFA,OXYCODONE,PROVERA,FLAGYL- PCN,CEPHALOSPORINS,SULFA,OXYCODONE,PROVERA,FLAGYL- PCN,CEPHALOSPORINS,SULFA,OXYCODONE,PROVERA,FLAGYL- PCN,CEPHALOSPORINS,SULFA,OXYCODONE,PROVERA,FLAGYL- PCN,CEPHALOSPORINS,SULFA,OXYCODONE,PROVERA,FLAGYL- PCN,CEPHALOSPORINS,SULFA,OXYCODONE,PROVERA,FLAGYL- PCN,CEPHALOSPORINS,SULFA,OXYCODONE,PROVERA,FLAGYL- PCN,CEPHALOSPORINS,SULFA,OXYCODONE,PROVERA,FLAGYL- PCN,CEPHALOSPORINS,SULFA,OXYCODONE,PROVERA,FLAGYL- PCN,CEPHALOSPORINS,SULFA,OXYCODONE,PROVERA,FLAGYL- PCN,CEPHALOSPORINS,SULFA,OXYCODONE,PROVERA,FLAGYL- PCN,CEPHALOSPORINS,SULFA,OXYCODONE,PROVERA,FLAGYL- PCN,CEPHALOSPORINS,SULFA,OXYCODONE,PROVERA,FLAGYL- PCN,CEPHALOSPORINS,SULFA,OXYCODONE,PROVERA,FLAGYL- PCN,CEPHALOSPORINS,SULFA,OXYCODONE,PROVERA,FLAGYL- PCN,CEPHALOSPORINS,SULFA,OXYCODONE,PROVERA,FLAGYL- PCN,CEPHALOSPORINS,SULFA,OXYCODONE,PROVERA,FLAGYL- PCN,CEPHALOSPORINS,SULFA,OXYCODONE,PROVERA,FLAGYL- PCN,CEPHALOSPORINS,SULFA,OXYCODONE,PROVERA,FLAGYL- PCN,CEPHALOSPORINS,SULFA,OXYCODONE,PROVERA,FLAGYL- PCN,CEPHALOSPORINS,SULFA,OXYCODONE,PROVERA,FLAGYL- PCN,CEPHALOSPORINS,SULFA,OXYCODONE,PROVERA,FLAGYL- PCN,CEPHALOSPORINS,SULFA,OXYCODONE,PROVERA,FLAGYL- PCN,CEPHALOSPORINS,SULFA,OXYCODONE,PROVERA,FLAGYL- PCN,CEPHALOSPORINS,SULFA,OXYCODONE,PROVERA,FLAGYL- PCN,CEPHALOSPORINS,SULFA,OXYCODONE,PROVERA,FLAGYL- PCN,CEPHALOSPORINS,SULFA,OXYCODONE,PROVERA,FLAGYL- PCN,CEPHALOSPORINS,SULFA,OXYCODONE,PROVERA,FLAGYL- PCN,CEPHALOSPORINS,SULFA,OXYCODONE,PROVERA,FLAGYL- PCN,CEPHALOSPORINS,SULFA,OXYCODONE,PROVERA,FLAGYL- PCN,CEPHALOSPORINS,SULFA,OXYCODONE,PROVERA,FLAGYL- PCN,CEPHALOSPORINS,SULFA,OXYCODONE,PROVERA,FLAGYL- PCN,CEPHALOSPORINS,SULFA,OXYCODONE,PROVERA,FLAGYL- PCN,CEPHALOSPORINS,SULFA,OXYCODONE,PROVERA,FLAGYL- PCN,CEPHALOSPORINS,SULFA,OXYCODONE,PROVERA,FLAGYL- PCN,CEPHALOSPORINS,SULFA,OXYCODONE,PROVERA,FLAGYL- PCN,CEPHALOSPORINS,SULFA,OXYCODONE,PROVERA,FLAGYL- PCN,CEPHALOSPORINS,SULFA,OXYCODONE,PROVERA,FLAGYL- PCN,CEPHALOSPORINS,SULFA,OXYCODONE,PROVERA,FLAGYL- PCN,CEPHALOSPORINS,SULFA,OXYCODONE,PROVERA,FLAGYL- PCN,CEPHALOSPORINS,SULFA,OXYCODONE,PROVERA,FLAGYL- PCN,CEPHALOSPORINS,SULFA,OXYCODONE,PROVERA,FLAGYL- PCN,CEPHALOSPORINS,SULFA,OXYCODONE,PROVERA,FLAGYL- PCN,CEPHALOSPORINS,SULFA,OXYCODONE,PROVERA,FLAGYL- PCN,CEPHALOSPORINS,SULFA,OXYCODONE,PROVERA,FLAGYL- PCN,CEPHALOSPORINS,SULFA,OXYCODONE,PROVERA,FLAGYL- PCN,CEPHALOSPORINS,SULFA,OXYCODONE,PROVERA,FLAGYL- PCN,CEPHALOSPORINS,SULFA,OXYCODONE,PROVERA,FLAGYL- PCN,CEPHALOSPORINS,SULFA,OXYCODONE,PROVERA,FLAGYL- PCN,CEPHALOSPORINS,SULFA,OXYCODONE,PROVERA,FLAGYL- PCN,CEPHALOSPORINS,SULFA,OXYCODONE,PROVERA,FLAGYL- PCN,CEPHALOSPORINS,SULFA,OXYCODONE,PROVERA,FLAGYL- PCN,CEPHALOSPORINS,SULFA,OXYCODONE,PROVERA,FLAGYL- PCN,CEPHALOSPORINS,SULFA,OXYCODONE,PROVERA,FLAGYL- PCN,CEPHALOSPORINS,SULFA,OXYCODONE,PROVERA,FLAGYL- PCN,CEPHALOSPORINS,SULFA,OXYCODONE,PROVERA,FLAGYL- PCN,CEPHALOSPORINS,SULFA,OXYCODONE,PROVERA,FLAGYL- PCN,CEPHALOSPORINS,SULFA,OXYCODONE,PROVERA,FLAGYL- PCN,CEPHALOSPORINS,SULFA,OXYCODONE,PROVERA,FLAGYL- PCN,CEPHALOSPORINS,SULFA,OXYCODONE,PROVERA,FLAGYL- PCN,CEPHALOSPORINS,SULFA,OXYCODONE,PROVERA,FLAGYL- PCN,CEPHALOSPORINS,SULFA,OXYCODONE,PROVERA,FLAGYL- PCN,CEPHALOSPORINS,SULFA,OXYCODONE,PROVERA,FLAGYL- PCN,CEPHALOSPORINS,SULFA,OXYCODONE,PROVERA,FLAGYL- PCN,CEPHALOSPORINS,SULFA,OXYCODONE,PROVERA,FLAGYL- PCN,CEPHALOSPORINS,SULFA,OXYCODONE,PROVERA,FLAGYL- PCN,CEPHALOSPORINS,SULFA,OXYCODONE,PROVERA,FLAGYL- PCN,CEPHALOSPORINS,SULFA,OXYCODONE,PROVERA,FLAGYL- PCN,CEPHALOSPORINS,SULFA,OXYCODONE,PROVERA,FLAGYL- PCN,CEPHALOSPORINS,SULFA,OXYCODONE,PROVERA,FLAGYL- PCN,CEPHALOSPORINS,SULFA,OXYCODONE,PROVERA,FLAGYL- PCN,CEPHALOSPORINS,SULFA,OXYCODONE,PROVERA,FLAGYL- PCN,CEPHALOSPORINS,SULFA,OXYCODONE,PROVERA,FLAGYL- PCN,CEPHALOSPORINS,SULFA,OXYCODONE,PROVERA,FLAGYL- PCN,CEPHALOSPORINS,SULFA,OXYCODONE,PROVERA,FLAGYL- PCN,CEPHALOSPORINS,SULFA,OXYCODONE,PROVERA,FLAGYL- PCN,CEPHALOSPORINS,SULFA,OXYCODONE,PROVERA,FLAGYL- PCN,CEPHALOSPORINS,SULFA,OXYCODONE,PROVERA,FLAGYL- PCN,CEPHALOSPORINS,SULFA,OXYCODONE,PROVERA,FLAGYL- PCN,CEPHALOSPORINS,SULFA,OXYCODONE,PROVERA,FLAGYL- PCN,CEPHALOSPORINS,SULFA,OXYCODONE,PROVERA,FLAGYL- PCN,CEPHALOSPORINS,SULFA,OXYCODONE,PROVERA,FLAGYL- PCN,CEPHALOSPORINS,SULFA,OXYCODONE,PROVERA,FLAGYL- PCN,CEPHALOSPORINS,SULFA,OXYCODONE,PROVERA,FLAGYL- PCN,CEPHALOSPORINS,SULFA,OXYCODONE,PROVERA,FLAGYL- PCN,CEPHALOSPORINS,SULFA,OXYCODONE,PROVERA,FLAGYL- PCN,CEPHALOSPORINS,SULFA,OXYCODONE,PROVERA,FLAGYL- PCN,CEPHALOSPORINS,SULFA,OXYCODONE,PROVERA,FLAGYL- PCN,CEPHALOSPORINS,SULFA,OXYCODONE,PROVERA,FLAGYL- PCN,CEPHALOSPORINS,SULFA,OXYCODONE,PROVERA,FLAGYL- PCN,CEPHALOSPORINS,SULFA,OXYCODONE,PROVERA,FLAGYL- PCN,CEPHALOSPORINS,SULFA,OXYCODONE,PROVERA,FLAGYL- PCN,CEPHALOSPORINS,SULFA,OXYCODONE,PROVERA,FLAGYL- PCN,CEPHALOSPORINS,SULFA,OXYCODONE,PROVERA,FLAGYL- PCN,CEPHALOSPORINS,SULFA,OXYCODONE,PROVERA,FLAGYL- PCN,CEPHALOSPORINS,SULFA,OXYCODONE,PROVERA,FLAGYL- PCN,CEPHALOSPORINS,SULFA,OXYCODONE,PROVERA,FLAGYL- PCN,CEPHALOSPORINS,SULFA,OXYCODONE,PROVERA,FLAGYL- PCN,CEPHALOSPORINS,SULFA,OXYCODONE,PROVERA,FLAGYL- PCN,CEPHALOSPORINS,SULFA,OXYCODONE,PROVERA,FLAGYL- PCN,CEPHALOSPORINS,SULFA,OXYCODONE,PROVERA,FLAGYL- PCN,CEPHALOSPORINS,SULFA,OXYCODONE,PROVERA,FLAGYL- PCN,CEPHALOSPORINS,SULFA,OXYCODONE,PROVERA,FLAGYL- PCN,CEPHALOSPORINS,SULFA,OXYCODONE,PROVERA,FLAGYL- PCN,CEPHALOSPORINS,SULFA,OXYCODONE,PROVERA,FLAGYL- PCN,CEPHALOSPORINS,SULFA,OXYCODONE,PROVERA,FLAGYL- PCN,CEPHALOSPORINS,SULFA,OXYCODONE,PROVERA,FLAGYL- PCN,CEPHALOSPORINS,SULFA,OXYCODONE,PROVERA,FLAGYL- PCN,CEPHALOSPORINS,SULFA,OXYCODONE,PROVERA,FLAGYL- PCN,CEPHALOSPORINS,SULFA,OXYCODONE,PROVERA,FLAGYL- PCN,CEPHALOSPORINS,SULFA,OXYCODONE,PROVERA,FLAGYL- PCN,CEPHALOSPORINS,SULFA,OXYCODONE,PROVERA,FLAGYL- PCN,CEPHALOSPORINS,SULFA,OXYCODONE,PROVERA,FLAGYL- PCN,CEPHALOSPORINS,SULFA,OXYCODONE,PROVERA,FLAGYL- PCN,CEPHALOSPORINS,SULFA,OXYCODONE,PROVERA,FLAGYL- PCN,CEPHALOSPORINS,SULFA,OXYCODONE,PROVERA,FLAGYL- PCN,CEPHALOSPORINS,SULFA,OXYCODONE,PROVERA,FLAGYL- PCN,CEPHALOSPORINS,SULFA,OXYCODONE,PROVERA,FLAGYL- PCN,CEPHALOSPORINS,SULFA,OXYCODONE,PROVERA,FLAGYL- PCN,CEPHALOSPORINS,SULFA,OXYCODONE,PROVERA,FLAGYL- PCN,CEPHALOSPORINS,SULFA,OXYCODONE,PROVERA,FLAGYL- PCN,CEPHALOSPORINS,SULFA,OXYCODONE,PROVERA,FLAGYL- PCN,CEPHALOSPORINS,SULFA,OXYCODONE,PROVERA,FLAGYL- PCN,CEPHALOSPORINS,SULFA,OXYCODONE,PROVERA,FLAGYL- PCN,CEPHALOSPORINS,SULFA,OXYCODONE,PROVERA,FLAGYL- PCN,CEPHALOSPORINS,SULFA,OXYCODONE,PROVERA,FLAGYL- PCN,CEPHALOSPORINS,SULFA,OXYCODONE,PROVERA,FLAGYL- PCN,CEPHALOSPORINS,SULFA,OXYCODONE,PROVERA,FLAGYL- PCN,CEPHALOSPORINS,SULFA,OXYCODONE,PROVERA,FLAGYL- PCN,CEPHALOSPORINS,SULFA,OXYCODONE,PROVERA,FLAGYL- PCN,CEPHALOSPORINS,SULFA,OXYCODONE,PROVERA,FLAGYL- PCN,CEPHALOSPORINS,SULFA,OXYCODONE,PROVERA,FLAGYL- PCN,CEPHALOSPORINS,SULFA,OXYCODONE,PROVERA,FLAGYL- PCN,CEPHALOSPORINS,SULFA,OXYCODONE,PROVERA,FLAGYL- PCN,CEPHALOSPORINS,SULFA,OXYCODONE,PROVERA,FLAGYL- PCN,CEPHALOSPORINS,SULFA,OXYCODONE,PROVERA,FLAGYL- PCN,CEPHALOSPORINS,SULFA,OXYCODONE,PROVERA,FLAGYL- PCN,CEPHALOSPORINS,SULFA,OXYCODONE,PROVERA,FLAGYL- PCN,CEPHALOSPORINS,SULFA,OXYCODONE,PROVERA,FLAGYL- PCN,CEPHALOSPORINS,SULFA,OXYCODONE,PROVERA,FLAGYL- PCN,CEPHALOSPORINS,SULFA,OXYCODONE,PROVERA,FLAGYL- PCN,CEPHALOSPORINS,SULFA,OXYCODONE,PROVERA,FLAGYL- PCN,CEPHALOSPORINS,SULFA,OXYCODONE,PROVERA,FLAGYL- PCN,CEPHALOSPORINS,SULFA,OXYCODONE,PROVERA,FLAGYL- PCN,CEPHALOSPORINS,SULFA,OXYCODONE,PROVERA,FLAGYL- PCN,CEPHALOSPORINS,SULFA,OXYCODONE,PROVERA,FLAGYL- PCN,CEPHALOSPORINS,SULFA,OXYCODONE,PROVERA,FLAGYL- PCN,CEPHALOSPORINS,SULFA,OXYCODONE,PROVERA,FLAGYL- PCN,CEPHALOSPORINS,SULFA,OXYCODONE,PROVERA,FLAGYL- PCN,CEPHALOSPORINS,SULFA,OXYCODONE,PROVERA,FLAGYL- PCN,CEPHALOSPORINS,SULFA,OXYCODONE,PROVERA,FLAGYL- PCN,CEPHALOSPORINS,SULFA,OXYCODONE,PROVERA,FLAGYL- PCN,CEPHALOSPORINS,SULFA,OXYCODONE,PROVERA,FLAGYL- PCN,CEPHALOSPORINS,SULFA,OXYCODONE,PROVERA,FLAGYL- PCN,CEPHALOSPORINS,SULFA,OXYCODONE,PROVERA,FLAGYL- PCN,CEPHALOSPORINS,SULFA,OXYCODONE,PROVERA,FLAGYL- PCN,CEPHALOSPORINS,SULFA,OXYCODONE,PROVERA,FLAGYL- PCN,CEPHALOSPORINS,SULFA,OXYCODONE,PROVERA,FLAGYL- PCN,CEPHALOSPORINS,SULFA,OXYCODONE,PROVERA,FLAGYL- PCN,CEPHALOSPORINS,SULFA,OXYCODONE,PROVERA,FLAGYL- PCN,CEPHALOSPORINS,SULFA,OXYCODONE,PROVERA,FLAGYL- PCN,CEPHALOSPORINS,SULFA,OXYCODONE,PROVERA,FLAGYL- PCN,CEPHALOSPORINS,SULFA,OXYCODONE,PROVERA,FLAGYL- PCN,CEPHALOSPORINS,SULFA,OXYCODONE,PROVERA,FLAGYL- PCN,CEPHALOSPORINS,SULFA,OXYCODONE,PROVERA,FLAGYL- PCN,CEPHALOSPORINS,SULFA,OXYCODONE,PROVERA,FLAGYL- PCN,CEPHALOSPORINS,SULFA,OXYCODONE,PROVERA,FLAGYL- PCN,CEPHALOSPORINS,SULFA,OXYCODONE,PROVERA,FLAGYL- PCN,CEPHALOSPORINS,SULFA,OXYCODONE,PROVERA,FLAGYL- PCN,CEPHALOSPORINS,SULFA,OXYCODONE,PROVERA,FLAGYL- PCN,CEPHALOSPORINS,SULFA,OXYCODONE,PROVERA,FLAGYL- PCN,CEPHALOSPORINS,SULFA,OXYCODONE,PROVERA,FLAGYL- PCN,CEPHALOSPORINS,SULFA,OXYCODONE,PROVERA,FLAGYL- PCN,CEPHALOSPORINS,SULFA,OXYCODONE,PROVERA,FLAGYL- PCN,CEPHALOSPORINS,SULFA,OXYCODONE,PROVERA,FLAGYL- PCN,CEPHALOSPORINS,SULFA,OXYCODONE,PROVERA,FLAGYL- PCN,CEPHALOSPORINS,SULFA,OXYCODONE,PROVERA,FLAGYL- PCN,CEPHALOSPORINS,SULFA,OXYCODONE,PROVERA,FLAGYL- PCN,CEPHALOSPORINS,SULFA,OXYCODONE,PROVERA,FLAGYL- PCN,CEPHALOSPORINS,SULFA,OXYCODONE,PROVERA,FLAGYL- PCN,CEPHALOSPORINS,SULFA,OXYCODONE,PROVERA,FLAGYL- PCN,CEPHALOSPORINS,SULFA,OXYCODONE,PROVERA,FLAGYL- PCN,CEPHALOSPORINS,SULFA,OXYCODONE,PROVERA,FLAGYL- PCN,CEPHALOSPORINS,SULFA,OXYCODONE,PROVERA,FLAGYL- PCN,CEPHALOSPORINS,SULFA,OXYCODONE,PROVERA,FLAGYL- PCN,CEPHALOSPORINS,SULFA,OXYCODONE,PROVERA,FLAGYL- PCN,CEPHALOSPORINS,SULFA,OXYCODONE,PROVERA,FLAGYL- PCN,CEPHALOSPORINS,SULFA,OXYCODONE,PROVERA,FLAGYL- PCN,CEPHALOSPORINS,SULFA,OXYCODONE,PROVERA,FLAGYL- PCN,CEPHALOSPORINS,SULFA,OXYCODONE,PROVERA,FLAGYL- PCN,CEPHALOSPORINS,SULFA,OXYCODONE,PROVERA,FLAGYL- PCN,CEPHALOSPORINS,SULFA,OXYCODONE,PROVERA,FLAGYL- PCN,CEPHALOSPORINS,SULFA,OXYCODONE,PROVERA,FLAGYL- PCN,CEPHALOSPORINS,SULFA,OXYCODONE,PROVERA,FLAGYL- PCN,CEPHALOSPORINS,SULFA,OXYCODONE,PROVERA,FLAGYL- PCN,CEPHALOSPORINS,SULFA,OXYCODONE,PROVERA,FLAGYL- PCN,CEPHALOSPORINS,SULFA,OXYCODONE,PROVERA,FLAGYL- PCN,CEPHALOSPORINS,SULFA,OXYCODONE,PROVERA,FLAGYL- PCN,CEPHALOSPORINS,SULFA,OXYCODONE,PROVERA,FLAGYL- PCN,CEPHALOSPORINS,SULFA,OXYCODONE,PROVERA,FLAGYL- PCN,CEPHALOSPORINS,SULFA,OXYCODONE,PROVERA,FLAGYL- PCN,CEPHALOSPORINS,SULFA,OXYCODONE,PROVERA,FLAGYL- PCN,CEPHALOSPORINS,SULFA,OXYCODONE,PROVERA,FLAGYL- PCN,CEPHALOSPORINS,SULFA,OXYCODONE,PROVERA,FLAGYL- PCN,CEPHALOSPORINS,SULFA,OXYCODONE,PROVERA,FLAGYL- PCN,CEPHALOSPORINS,SULFA,OXYCODONE,PROVERA,FLAGYL- PCN,CEPHALOSPORINS,SULFA,OXYCODONE,PROVERA,FLAGYL- PCN,CEPHALOSPORINS,SULFA,OXYCODONE,PROVERA,FLAGYL- PCN,CEPHALOSPORINS,SULFA,OXYCODONE,PROVERA,FLAGYL- PCN,CEPHALOSPORINS,SULFA,OXYCODONE,PROVERA,FLAGYL- PCN,CEPHALOSPORINS,SULFA,OXYCODONE,PROVERA,FLAGYL- PCN,CEPHALOSPORINS,SULFA,OXYCODONE,PROVERA,FLAGYL- PCN,CEPHALOSPORINS,SULFA,OXYCODONE,PROVERA,FLAGYL- PCN,CEPHALOSPORINS,SULFA,OXYCODONE,PROVERA,FLAGYL- PCN,CEPHALOSPORINS,SULFA,OXYCODONE,PROVERA,FLAGYL- PCN,CEPHALOSPORINS,SULFA,OXYCODONE,PROVERA,FLAGYL- PCN,CEPHALOSPORINS,SULFA,OXYCODONE,PROVERA,FLAGYL- PCN,CEPHALOSPORINS,SULFA,OXYCODONE,PROVERA,FLAGYL- PCN,CEPHALOSPORINS,SULFA,OXYCODONE,PROVERA,FLAGYL- PCN,CEPHALOSPORINS,SULFA,OXYCODONE,PROVERA,FLAGYL- PCN,CEPHALOSPORINS,SULFA,OXYCODONE,PROVERA,FLAGYL- PCN,CEPHALOSPORINS,SULFA,OXYCODONE,PROVERA,FLAGYL- PCN,CEPHALOSPORINS,SULFA,OXYCODONE,PROVERA,FLAGYL- PCN,CEPHALOSPORINS,SULFA,OXYCODONE,PROVERA,FLAGYL- PCN,CEPHALOSPORINS,SULFA,OXYCODONE,PROVERA,FLAGYL- PCN,CEPHALOSPORINS,SULFA,OXYCODONE,PROVERA,FLAGYL- PCN,CEPHALOSPORINS,SULFA,OXYCODONE,PROVERA,FLAGYL- PCN,CEPHALOSPORINS,SULFA,OXYCODONE,PROVERA,FLAGYL- PCN,CEPHALOSPORINS,SULFA,OXYCODONE,PROVERA,FLAGYL- PCN,CEPHALOSPORINS,SULFA,OXYCODONE,PROVERA,FLAGYL- PCN,CEPHALOSPORINS,SULFA,OXYCODONE,PROVERA,FLAGYL- PCN,CEPHALOSPORINS,SULFA,OXYCODONE,PROVERA,FLAGYL- PCN,CEPHALOSPORINS,SULFA,OXYCODONE,PROVERA,FLAGYL- PCN,CEPHALOSPORINS,SULFA,OXYCODONE,PROVERA,FLAGYL- PCN,CEPHALOSPORINS,SULFA,OXYCODONE,PROVERA,FLAGYL- PCN,CEPHALOSPORINS,SULFA,OXYCODONE,PROVERA,FLAGYL- PCN,CEPHALOSPORINS,SULFA,OXYCODONE,PROVERA,FLAGYL- PCN,CEPHALOSPORINS,SULFA,OXYCODONE,PROVERA,FLAGYL- PCN,CEPHALOSPORINS,SULFA,OXYCODONE,PROVERA,FLAGYL- PCN,CEPHALOSPORINS,SULFA,OXYCODONE,PROVERA,FLAGYL- PCN,CEPHALOSPORINS,SULFA,OXYCODONE,PROVERA,FLAGYL- PCN,CEPHALOSPORINS,SULFA,OXYCODONE,PROVERA,FLAGYL- PCN,CEPHALOSPORINS,SULFA,OXYCODONE,PROVERA,FLAGYL- PCN,CEPHALOSPORINS,SULFA,OXYCODONE,PROVERA,FLAGYL- PCN,CEPHALOSPORINS,SULFA,OXYCODONE,PROVERA,FLAGYL- PCN,CEPHALOSPORINS,SULFA,OXYCODONE,PROVERA,FLAGYL- PCN,CEPHALOSPORINS,SULFA,OXYCODONE,PROVERA,FLAGYL- PCN,CEPHALOSPORINS,SULFA,OXYCODONE,PROVERA,FLAGYL- PCN,CEPHALOSPORINS,SULFA,OXYCODONE,PROVERA,FLAGYL- PCN,CEPHALOSPORINS,SULFA,OXYCODONE,PROVERA,FLAGYL- PCN,CEPHALOSPORINS,SULFA,OXYCODONE,PROVERA,FLAGYL- PCN,CEPHALOSPORINS,SULFA,OXYCODONE,PROVERA,FLAGYL- PCN,CEPHALOSPORINS,SULFA,OXYCODONE,PROVERA,FLAGYL- PCN,CEPHALOSPORINS,SULFA,OXYCODONE,PROVERA,FLAGYL- PCN,CEPHALOSPORINS,SULFA,OXYCODONE,PROVERA,FLAGYL- PCN,CEPHALOSPORINS,SULFA,OXYCODONE,PROVERA,FLAGYL- PCN,CEPHALOSPORINS,SULFA,OXYCODONE,PROVERA,FLAGYL- PCN,CEPHALOSPORINS,SULFA,OXYCODONE,PROVERA,FLAGYL- PCN,CEPHALOSPORINS,SULFA,OXYCODONE,PROVERA,FLAGYL- PCN,CEPHALOSPORINS,SULFA,OXYCODONE,PROVERA,FLAGYL- PCN,CEPHALOSPORINS,SULFA,OXYCODONE,PROVERA,FLAGYL- PCN,CEPHALOSPORINS,SULFA,OXYCODONE,PROVERA,FLAGYL- PCN,CEPHALOSPORINS,SULFA,OXYCODONE,PROVERA,FLAGYL- PCN,CEPHALOSPORINS,SULFA,OXYCODONE,PROVERA,FLAGYL- PCN,CEPHALOSPORINS,SULFA,OXYCODONE,PROVERA,FLAGYL- PCN,CEPHALOSPORINS,SULFA,OXYCODONE,PROVERA,FLAGYL- PCN,CEPHALOSPORINS,SULFA,OXYCODONE,PROVERA,FLAGYL- PCN,CEPHALOSPORINS,SULFA,OXYCODONE,PROVERA,FLAGYL- PCN,CEPHALOSPORINS,SULFA,OXYCODONE,PROVERA,FLAGYL- PCN,CEPHALOSPORINS,SULFA,OXYCODONE,PROVERA,FLAGYL- PCN,CEPHALOSPORINS,SULFA,OXYCODONE,PROVERA,FLAGYL- PCN,CEPHALOSPORINS,SULFA,OXYCODONE,PROVERA,FLAGYL- PCN,CEPHALOSPORINS,SULFA,OXYCODONE,PROVERA,FLAGYL- PCN,CEPHALOSPORINS,SULFA,OXYCODONE,PROVERA,FLAGYL- PCN,CEPHALOSPORINS,SULFA,OXYCODONE,PROVERA,FLAGYL- PCN,CEPHALOSPORINS,SULFA,OXYCODONE,PROVERA,FLAGYL- PCN,CEPHALOSPORINS,SULFA,OXYCODONE,PROVERA,FLAGYL- PCN,CEPHALOSPORINS,SULFA,OXYCODONE,PROVERA,FLAGYL- PCN,CEPHALOSPORINS,SULFA,OXYCODONE,PROVERA,FLAGYL- PCN,CEPHALOSPORINS,SULFA,OXYCODONE,PROVERA,FLAGYL- PCN,CEPHALOSPORINS,SULFA,OXYCODONE,PROVERA,FLAGYL- PCN,CEPHALOSPORINS,SULFA,OXYCODONE,PROVERA,FLAGYL- PCN,CEPHALOSPORINS,SULFA,OXYCODONE,PROVERA,FLAGYL- PCN,CEPHALOSPORINS,SULFA,OXYCODONE,PROVERA,FLAGYL- PCN,CEPHALOSPORINS,SULFA,OXYCODONE,PROVERA,FLAGYL- PCN,CEPHALOSPORINS,SULFA,OXYCODONE,PROVERA,FLAGYL- PCN,CEPHALOSPORINS,SULFA,OXYCODONE,PROVERA,FLAGYL- PCN,CEPHALOSPORINS,SULFA,OXYCODONE,PROVERA,FLAGYL- PCN,CEPHALOSPORINS,SULFA,OXYCODONE,PROVERA,FLAGYL- PCN,CEPHALOSPORINS,SULFA,OXYCODONE,PROVERA,FLAGYL- PCN,CEPHALOSPORINS,SULFA,OXYCODONE,PROVERA,FLAGYL- PCN,CEPHALOSPORINS,SULFA,OXYCODONE,PROVERA,FLAGYL- PCN,CEPHALOSPORINS,SULFA,OXYCODONE,PROVERA,FLAGYL- PCN,CEPHALOSPORINS,SULFA,OXYCODONE,PROVERA,FLAGYL- PCN,CEPHALOSPORINS,SULFA,OXYCODONE,PROVERA,FLAGYL- PCN,CEPHALOSPORINS,SULFA,OXYCODONE,PROVERA,FLAGYL- PCN,CEPHALOSPORINS,SULFA,OXYCODONE,PROVERA,FLAGYL- PCN,CEPHALOSPORINS,SULFA,OXYCODONE,PROVERA,FLAGYL- PCN,CEPHALOSPORINS,SULFA,OXYCODONE,PROVERA,FLAGYL- PCN,CEPHALOSPORINS,SULFA,OXYCODONE,PROVERA,FLAGYL- PCN,CEPHALOSPORINS,SULFA,OXYCODONE,PROVERA,FLAGYL- PCN,CEPHALOSPORINS,SULFA,OXYCODONE,PROVERA,FLAGYL- PCN,CEPHALOSPORINS,SULFA,OXYCODONE,PROVERA,FLAGYL- PCN,CEPHALOSPORINS,SULFA,OXYCODONE,PROVERA,FLAGYL- PCN,CEPHALOSPORINS,SULFA,OXYCODONE,PROVERA,FLAGYL- PCN,CEPHALOSPORINS,SULFA,OXYCODONE,PROVERA,FLAGYL- PCN,CEPHALOSPORINS,SULFA,OXYCODONE,PROVERA,FLAGYL- PCN,CEPHALOSPORINS,SULFA,OXYCODONE,PROVERA,FLAGYL- PCN,CEPHALOSPORINS,SULFA,OXYCODONE,PROVERA,FLAGYL- PCN,CEPHALOSPORINS,SULFA,OXYCODONE,PROVERA,FLAGYL- PCN,CEPHALOSPORINS,SULFA,OXYCODONE,PROVERA,FLAGYL- PCN,CEPHALOSPORINS,SULFA,OXYCODONE,PROVERA,FLAGYL- PCN,CEPHALOSPORINS,SULFA,OXYCODONE,PROVERA,FLAGYL- PCN,CEPHALOSPORINS,SULFA,OXYCODONE,PROVERA,FLAGYL- PCN,CEPHALOSPORINS,SULFA,OXYCODONE,PROVERA,FLAGYL- PCN,CEPHALOSPORINS,SULFA,OXYCODONE,PROVERA,FLAGYL- PCN,CEPHALOSPORINS,SULFA,OXYCODONE,PROVERA,FLAGYL- PCN,CEPHALOSPORINS,SULFA,OXYCODONE,PROVERA,FLAGYL- PCN,CEPHALOSPORINS,SULFA,OXYCODONE,PROVERA,FLAGYL- PCN,CEPHALOSPORINS,SULFA,OXYCODONE,PROVERA,FLAGYL- PCN,CEPHALOSPORINS,SULFA,OXYCODONE,PROVERA,FLAGYL- PCN,CEPHALOSPORINS,SULFA,OXYCODONE,PROVERA,FLAGYL- PCN,CEPHALOSPORINS,SULFA,OXYCODONE,PROVERA,FLAGYL- PCN,CEPHALOSPORINS,SULFA,OXYCODONE,PROVERA,FLAGYL- PCN,CEPHALOSPORINS,SULFA,OXYCODONE,PROVERA,FLAGYL- PCN,CEPHALOSPORINS,SULFA,OXYCODONE,PROVERA,FLAGYL- PCN,CEPHALOSPORINS,SULFA,OXYCODONE,PROVERA,FLAGYL- PCN,CEPHALOSPORINS,SULFA,OXYCODONE,PROVERA,FLAGYL- PCN,CEPHALOSPORINS,SULFA,OXYCODONE,PROVERA,FLAGYL- PCN,CEPHALOSPORINS,SULFA,OXYCODONE,PROVERA,FLAGYL- PCN,CEPHALOSPORINS,SULFA,OXYCODONE,PROVERA,FLAGYL- PCN,CEPHALOSPORINS,SULFA,OXYCODONE,PROVERA,FLAGYL- PCN,CEPHALOSPORINS,SULFA,OXYCODONE,PROVERA,FLAGYL- PCN,CEPHALOSPORINS,SULFA,OXYCODONE,PROVERA,FLAGYL- PCN,CEPHALOSPORINS,SULFA,OXYCODONE,PROVERA,FLAGYL- PCN,CEPHALOSPORINS,SULFA,OXYCODONE,PROVERA,FLAGYL- PCN,CEPHALOSPORINS,SULFA,OXYCODONE,PROVERA,FLAGYL- PCN,CEPHALOSPORINS,SULFA,OXYCODONE,PROVERA,FLAGYL- PCN,CEPHALOSPORINS,SULFA,OXYCODONE,PROVERA,FLAGYL- PCN,CEPHALOSPORINS,SULFA,OXYCODONE,PROVERA,FLAGYL- PCN,CEPHALOSPORINS,SULFA,OXYCODONE,PROVERA,FLAGYL- PCN,CEPHALOSPORINS,SULFA,OXYCODONE,PROVERA,FLAGYL- PCN,CEPHALOSPORINS,SULFA,OXYCODONE,PROVERA,FLAGYL- PCN,CEPHALOSPORINS,SULFA,OXYCODONE,PROVERA,FLAGYL- PCN,CEPHALOSPORINS,SULFA,OXYCODONE,PROVERA,FLAGYL- PCN,CEPHALOSPORINS,SULFA,OXYCODONE,PROVERA,FLAGYL- PCN,CEPHALOSPORINS,SULFA,OXYCODONE,PROVERA,FLAGYL- PCN,CEPHALOSPORINS,SULFA,OXYCODONE,PROVERA,FLAGYL- PCN,CEPHALOSPORINS,SULFA,OXYCODONE,PROVERA,FLAGYL- PCN,CEPHALOSPORINS,SULFA,OXYCODONE,PROVERA,FLAGYL- PCN,CEPHALOSPORINS,SULFA,OXYCODONE,PROVERA,FLAGYL- PCN,CEPHALOSPORINS,SULFA,OXYCODONE,PROVERA,FLAGYL- PCN,CEPHALOSPORINS,SULFA,OXYCODONE,PROVERA,FLAGYL- PCN,CEPHALOSPORINS,SULFA,OXYCODONE,PROVERA,FLAGYL- PCN,CEPHALOSPORINS,SULFA,OXYCODONE,PROVERA,FLAGYL- PCN,CEPHALOSPORINS,SULFA,OXYCODONE,PROVERA,FLAGYL- PCN,CEPHALOSPORINS,SULFA,OXYCODONE,PROVERA,FLAGYL- PCN,CEPHALOSPORINS,SULFA,OXYCODONE,PROVERA,FLAGYL- PCN,CEPHALOSPORINS,SULFA,OXYCODONE,PROVERA,FLAGYL- PCN,CEPHALOSPORINS,SULFA,OXYCODONE,PROVERA,FLAGYL- PCN,CEPHALOSPORINS,SULFA,OXYCODONE,PROVERA,FLAGYL- PCN,CEPHALOSPORINS,SULFA,OXYCODONE,PROVERA,FLAGYL- PCN,CEPHALOSPORINS,SULFA,OXYCODONE,PROVERA,FLAGYL- PCN,CEPHALOSPORINS,SULFA,OXYCODONE,PROVERA,FLAGYL- PCN,CEPHALOSPORINS,SULFA,OXYCODONE,PROVERA,FLAGYL- PCN,CEPHALOSPORINS,SULFA,OXYCODONE,PROVERA,FLAGYL- PCN,CEPHALOSPORINS,SULFA,OXYCODONE,PROVERA,FLAGYL- PCN,CEPHALOSPORINS,SULFA,OXYCODONE,PROVERA,FLAGYL- PCN,CEPHALOSPORINS,SULFA,OXYCODONE,PROVERA,FLAGYL- PCN,CEPHALOSPORINS,SULFA,OXYCODONE,PROVERA,FLAGYL- PCN,CEPHALOSPORINS,SULFA,OXYCODONE,PROVERA,FLAGYL- PCN,CEPHALOSPORINS,SULFA,OXYCODONE,PROVERA,FLAGYL- PCN,CEPHALOSPORINS,SULFA,OXYCODONE,PROVERA,FLAGYL- PCN,CEPHALOSPORINS,SULFA,OXYCODONE,PROVERA,FLAGYL- PCN,CEPHALOSPORINS,SULFA,OXYCODONE,PROVERA,FLAGYL- PCN,CEPHALOSPORINS,SULFA,OXYCODONE,PROVERA,FLAGYL- PCN,CEPHALOSPORINS,SULFA,OXYCODONE,PROVERA,FLAGYL- PCN,CEPHALOSPORINS,SULFA,OXYCODONE,PROVERA,FLAGYL- PCN,CEPHALOSPORINS,SULFA,OXYCODONE,PROVERA,FLAGYL- PCN,CEPHALOSPORINS,SULFA,OXYCODONE,PROVERA,FLAGYL- PCN,CEPHALOSPORINS,SULFA,OXYCODONE,PROVERA,FLAGYL- PCN,CEPHALOSPORINS,SULFA,OXYCODONE,PROVERA,FLAGYL- PCN,CEPHALOSPORINS,SULFA,OXYCODONE,PROVERA,FLAGYL- PCN,CEPHALOSPORINS,SULFA,OXYCODONE,PROVERA,FLAGYL- PCN,CEPHALOSPORINS,SULFA,OXYCODONE,PROVERA,FLAGYL- PCN,CEPHALOSPORINS,SULFA,OXYCODONE,PROVERA,FLAGYL- PCN,CEPHALOSPORINS,SULFA,OXYCODONE,PROVERA,FLAGYL- PCN,CEPHALOSPORINS,SULFA,OXYCODONE,PROVERA,FLAGYL- Ketorolac Ondansetron clavulanic acid SULFA (sulfonamide) cephalexin PCN,CEPHALOSPORINS,SULFA,OXYCODONE,PROVERA,FLAGYL- PCN,CEPHALOSPORINS,SULFA,OXYCODONE,PROVERA,FLAGYL- PCN,CEPHALOSPORINS,SULFA,OXYCODONE,PROVERA,FLAGYL- PCN,CEPHALOSPORINS,SULFA,OXYCODONE,PROVERA,FLAGYL- PCN,CEPHALOSPORINS,SULFA,OXYCODONE,PROVERA,FLAGYL- PCN,CEPHALOSPORINS,SULFA,OXYCODONE,PROVERA,FLAGYL- PCN,CEPHALOSPORINS,SULFA,OXYCODONE,PROVERA,FLAGYL- PCN,CEPHALOSPORINS,SULFA,OXYCODONE,PROVERA,FLAGYL- PCN,CEPHALOSPORINS,SULFA,OXYCODONE,PROVERA,FLAGYL- PCN,CEPHALOSPORINS,SULFA,OXYCODONE,PROVERA,FLAGYL- PCN,CEPHALOSPORINS,SULFA,OXYCODONE,PROVERA,FLAGYL- PCN,CEPHALOSPORINS,SULFA,OXYCODONE,PROVERA,FLAGYL- PCN,CEPHALOSPORINS,SULFA,OXYCODONE,PROVERA,FLAGYL- PCN,CEPHALOSPORINS,SULFA,OXYCODONE,PROVERA,FLAGYL- PCN,CEPHALOSPORINS,SULFA,OXYCODONE,PROVERA,FLAGYL- PCN,CEPHALOSPORINS,SULFA,OXYCODONE,PROVERA,FLAGYL- PCN,CEPHALOSPORINS,SULFA,OXYCODONE,PROVERA,FLAGYL- PCN,CEPHALOSPORINS,SULFA,OXYCODONE,PROVERA,FLAGYL- PCN,CEPHALOSPORINS,SULFA,OXYCODONE,PROVERA,FLAGYL- PCN,CEPHALOSPORINS,SULFA,OXYCODONE,PROVERA,FLAGYL- PCN,CEPHALOSPORINS,SULFA,OXYCODONE,PROVERA,FLAGYL- PCN,CEPHALOSPORINS,SULFA,OXYCODONE,PROVERA,FLAGYL- PCN,CEPHALOSPORINS,SULFA,OXYCODONE,PROVERA,FLAGYL- Sulfa (Sulfonamide Antibiotics) Oxycodone metronidazole PCN,CEPHALOSPORINS,SULFA,OXYCODONE,PROVERA,FLAGYL- PCN,CEPHALOSPORINS,SULFA,OXYCODONE,PROVERA,FLAGYL- PCN,CEPHALOSPORINS,SULFA,OXYCODONE,PROVERA,FLAGYL- PCN,CEPHALOSPORINS,SULFA,OXYCODONE,PROVERA,FLAGYL- PCN,CEPHALOSPORINS,SULFA,OXYCODONE,PROVERA,FLAGYL- PCN,CEPHALOSPORINS,SULFA,OXYCODONE,PROVERA,FLAGYL- PCN,CEPHALOSPORINS,SULFA,OXYCODONE,PROVERA,FLAGYL- PCN,CEPHALOSPORINS,SULFA,OXYCODONE,PROVERA,FLAGYL- PCN,CEPHALOSPORINS,SULFA,OXYCODONE,PROVERA,FLAGYL- PCN,CEPHALOSPORINS,SULFA,OXYCODONE,PROVERA,FLAGYL- PCN,CEPHALOSPORINS,SULFA,OXYCODONE,PROVERA,FLAGYL- PCN,CEPHALOSPORINS,SULFA,OXYCODONE,PROVERA,FLAGYL- PCN,CEPHALOSPORINS,SULFA,OXYCODONE,PROVERA,FLAGYL- PCN,CEPHALOSPORINS,SULFA,OXYCODONE,PROVERA,FLAGYL- PCN,CEPHALOSPORINS,SULFA,OXYCODONE,PROVERA,FLAGYL- PCN,CEPHALOSPORINS,SULFA,OXYCODONE,PROVERA,FLAGYL- PCN,CEPHALOSPORINS,SULFA,OXYCODONE,PROVERA,FLAGYL- PCN,CEPHALOSPORINS,SULFA,OXYCODONE,PROVERA,FLAGYL- PCN,CEPHALOSPORINS,SULFA,OXYCODONE,PROVERA,FLAGYL- PCN,CEPHALOSPORINS,SULFA,OXYCODONE,PROVERA,FLAGYL- PCN,CEPHALOSPORINS,SULFA,OXYCODONE,PROVERA,FLAGYL- PCN,CEPHALOSPORINS,SULFA,OXYCODONE,PROVERA,FLAGYL- PCN,CEPHALOSPORINS,SULFA,OXYCODONE,PROVERA,FLAGYL- PCN,CEPHALOSPORINS,SULFA,OXYCODONE,PROVERA,FLAGYL- PCN,CEPHALOSPORINS,SULFA,OXYCODONE,PROVERA,FLAGYL- PCN,CEPHALOSPORINS,SULFA,OXYCODONE,PROVERA,FLAGYL- PCN,CEPHALOSPORINS,SULFA,OXYCODONE,PROVERA,FLAGYL- PCN,CEPHALOSPORINS,SULFA,OXYCODONE,PROVERA,FLAGYL- PCN,CEPHALOSPORINS,SULFA,OXYCODONE,PROVERA,FLAGYL- PCN,CEPHALOSPORINS,SULFA,OXYCODONE,PROVERA,FLAGYL- PCN,CEPHALOSPORINS,SULFA,OXYCODONE,PROVERA,FLAGYL- PCN,CEPHALOSPORINS,SULFA,OXYCODONE,PROVERA,FLAGYL- PCN,CEPHALOSPORINS,SULFA,OXYCODONE,PROVERA,FLAGYL- PCN,CEPHALOSPORINS,SULFA,OXYCODONE,PROVERA,FLAGYL- PCN,CEPHALOSPORINS,SULFA,OXYCODONE,PROVERA,FLAGYL- PCN,CEPHALOSPORINS,SULFA,OXYCODONE,PROVERA,FLAGYL- PCN,CEPHALOSPORINS,SULFA,OXYCODONE,PROVERA,FLAGYL- PCN,CEPHALOSPORINS,SULFA,OXYCODONE,PROVERA,FLAGYL- PCN,CEPHALOSPORINS,SULFA,OXYCODONE,PROVERA,FLAGYL- PCN,CEPHALOSPORINS,SULFA,OXYCODONE,PROVERA,FLAGYL- PCN,CEPHALOSPORINS,SULFA,OXYCODONE,PROVERA,FLAGYL- PCN,CEPHALOSPORINS,SULFA,OXYCODONE,PROVERA,FLAGYL- PCN,CEPHALOSPORINS,SULFA,OXYCODONE,PROVERA,FLAGYL- PCN,CEPHALOSPORINS,SULFA,OXYCODONE,PROVERA,FLAGYL- PCN,CEPHALOSPORINS,SULFA,OXYCODONE,PROVERA,FLAGYL- PCN,CEPHALOSPORINS,SULFA,OXYCODONE,PROVERA,FLAGYL- PCN,CEPHALOSPORINS,SULFA,OXYCODONE,PROVERA,FLAGYL- PCN,CEPHALOSPORINS,SULFA,OXYCODONE,PROVERA,FLAGYL- PCN,CEPHALOSPORINS,SULFA,OXYCODONE,PROVERA,FLAGYL- PCN,CEPHALOSPORINS,SULFA,OXYCODONE,PROVERA,FLAGYL- PCN,CEPHALOSPORINS,SULFA,OXYCODONE,PROVERA,FLAGYL- PCN,CEPHALOSPORINS,SULFA,OXYCODONE,PROVERA,FLAGYL- PCN,CEPHALOSPORINS,SULFA,OXYCODONE,PROVERA,FLAGYL- PCN,CEPHALOSPORINS,SULFA,OXYCODONE,PROVERA,FLAGYL- PCN,CEPHALOSPORINS,SULFA,OXYCODONE,PROVERA,FLAGYL- PCN,CEPHALOSPORINS,SULFA,OXYCODONE,PROVERA,FLAGYL- PCN,CEPHALOSPORINS,SULFA,OXYCODONE,PROVERA,FLAGYL- PCN,CEPHALOSPORINS,SULFA,OXYCODONE,PROVERA,FLAGYL- Vital Signs Time BP (mmHg) HR (bpm) O2 Sat. RR (bpm) LOC 01:37 PM 124 / 82 70 97 % 15 5 = Fully awake and oriented or at pre-proc level 02:07 PM / % 5 = Fully awake and oriented or at pre-proc level 02:07 PM / % 5 = Fully awake and oriented or at pre-proc level 02:22 PM / % 4 = Oriented but drowsy 02:16 PM 179 / 121 75 99 % 10 02:19 PM 177 / 110 72 98 % 14 02:24 PM 173 / 110 71 96 % 20 02:30 PM 179 / 115 77 97 % 14 02:34 PM 182 / 107 73 97 % 20 02:39 PM 182 / 114 79 98 % 19 Procedural Medications Time Medication Dose Units Method Given By 02:11 PM Oxygen 2 L/min nasal cannula Ankur Smart RN 02:14 PM Versed 1 mg Intravenous Ankur Smart RN 02:14 PM Fentanyl 50 mcg Intravenous Ankur Smart RN 02:29 PM Lidocaine 2% 10 ml Subcutaneous Kit Hester MD ASA Classification: CLASS II- Mild systemic disease (i.e. well-controlled diabetes, hypertension, asthma, cigarette smoking) Mere Score Preprocedure Postprocedure Activity 2- Moves 4 extremities sustained head lift Activity 2- Moves 4 extremities sustained head lift Circulation 2- SBP +/= 20 points of pre-anesthetic level Circulation 2- SBP +/= 20 points of pre-anesthetic level Consciousness 2- Awake and alert oriented x 3 Consciousness 2- Awake and alert oriented x 3 O2 Saturation 2- Able to maintain O2 satruation of 92% on room air O2 Saturation 2- Able to maintain O2 satruation of 92% on room air Respiratory 2- Able to deep breathe and cough well Respiratory 2- Able to deep breathe and cough well Total Score 10 Total Score 10 Contrast Agent: Isovue Diagnostic Contrast: 21 ml Total Contrast: 21 ml Fluoro Dose: 41 mGy Procedure Log Time Note Enter By 01:31 PM CathStat 01:39 PM Patient charges- Angio tray pack, Navilyst 3mm J, Pulse Oxim[email or web address] PM Ankur Smart RN Position: Retail Sales Associate Time in: 13:39 [email or web address] 01:39 PM Thee Duque RT (R) Position: Monitor [facility]: 13:39 [facility] Nakia Mckeon RT (R) Position: Scrub Time in: 13:39 [email or web address] 02:06 PM Pt arrived to [facility] 1 at 14:06 [email or web address] 02:07 PM Case Delayed No [email or web address] 02:07 PM Time: 14:07 Patient comfortable and pain free: Yes [email or web address] 02:07 PM Time: 14:07LOC: 5 = Fully awake and oriented or at pre-proc level [email or web address] 02:10 PM Physician arrived 14:10 [email or web address] 02:10 PM Meet and greet completed [email or web address] 02:10 PM Sign in performed according to hospital policy. Informed consent was obtained. [email or web address] 02:10 PM Procedure start 14:10 [email or web address] 02:10 PM ASA Class CLASS II- Mild systemic disease (i.e. well-controlled diabetes, hypertension, asthma, cigarette smoking) [email or web address] 02:11 PM Hair removed from procedure site in procedure lab using clippers. Bilateral groin prepped with Chloraprep by Nakia Mckeon (Brooks), then patient was draped. Skin intact. [email or web address] 02:11 PM Time: 14:11 Oxygen on at 2 L/min per nasal cannula by Ankur Smart RN ilson 02:12 PM Recorded ECG: HR=77 Condition=Condition 1 02:13 PM Vitals capture started with the following parameters, Patient=Adult, Interval=5 min, Initial Nkqvjdis=627 mmHg, Deflation Rate=3 mmHg, Cuff placed on Right Arm 02:14 PM Time: 14:14 Versed 1 mg Intravenous Given by Ankur Smart RN [email or web address] [id number] 02:14 PM Time: 14:14 Fentanyl 50 mcg Intravenous Given by Ankur Smart RN ilson 02:16 PM HR=75 bpm, XQOL=384/121 mmhg, SpO2=99.0 %, Resp=10 B/min 02:19 PM HR=72 bpm, GTCT=732/110 mmhg, SpO2=98.0 %, Resp=14 B/min 02:20 PM Pressure channel 1 zeroed. 02:22 PM Time: 14:07LOC: 5 = Fully awake and oriented or at pre-proc level [email or web address] 01:22 PM Time: 14:07 Patient comfortable and pain free: Yes [email or web address] 02:22 PM patient denies per Callie Hernandez RN ilson 02:24 PM HR=71 bpm, UCMX=180/110 mmhg, SpO2=96.0 %, Resp=20 B/min 02:29 PM Time out was performed according to hospital policy. Conscious sedation and anesthesia was achieved (see medication log with in this report above) [email or web address] 02:30 PM Time: 14:29 10 ml Lidocaine 2% to right groin Subcutaneous Given by Kit Hester MD [email or web address] 02:30 PM Micro-Introducer Kit utilized for sheath placement [email or web address] 02:30 PM hand injected femoral angiogram. [email or web address] 02:30 PM HR=77 bpm, WGUD=894/115 mmhg, SpO2=97.0 %, Resp=14 B/min 02:31 PM Access obtained by percutaneous puncture. 6Fr 10cm Terumo [place] sheath placed in right Femoral artery. [id number] 02:31 PM 0.035 145cm Navilyst 3mmJ wire [id number] 02:31 PM 5Fr FR 4 catheter inserted over the wire [facility] 02:32 PM RCA angiography performed in multiple views. 02:32 PM Coronary Dominance: right bw 02:32 PM Recorded Pressure: Ao, HR=76, Condition=Condition 1 (Aorta) Ao 151/109/126 02:32 PM Catheter removed 02:33 PM 5Fr FL 4 catheter inserted over the wire [facility] 02:33 PM LCA angiography performed in multiple views. 02:34 PM Recorded Pressure: Ao, HR=77, Condition=Condition 1 (Aorta) Ao 131/105/119 02:34 PM HR=73 bpm, GIDG=165/107 mmhg, SpO2=97.0 %, Resp=20 B/min 02:35 PM Catheter removed 02:35 PM 5Fr Pigtail catheter inserted over the wire [facility] 02:36 PM Pressure channel 1 zeroed. 02:36 PM Recorded Pressure: LV, HR=78, Condition=Condition 1 (Left Ventricle) LV 131/13/14 02:36 PM Recorded Pressure: LV, Ao, HR=78, Condition=Condition 1 (Left Ventricle) LV 123/4/6, (Aorta) Ao 133/51/93 02:36 PM Catheter removed 02:37 PM Procedure completed at 14:37 02/24/2018 bw 02:37 PM Time: 14:22 Patient comfortable and pain free: Yes 02:37 PM Time: 14:22LOC: 4 = Oriented but drowsy bw 02:38 PM Arterial sheath pulled, Angio-seal closure device used and was Successful [id number] S/N. 02:38 PM Procedure completed at 14:37 02/24/2018 bw 02:39 PM Sign out completed: Radiation Dose 387.52 mGy, 41.0223 Gy/cm2 Fluoro Time: 1.2 Isovue 370 - 200ml contrast 21 ml given by Kit Hester MD. Complications: None. 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 Cardiac Rehab Consult needed: YesConfirmed administered medications: Yes [email or web address] 02:39 PM Isovue 370 - 200ml,1 Bottle(s) used. [email or web address] 02:39 PM Estimated Blood Loss: less than 20cc [email or web address] 02:39 PM Post ECG NSR [email or web address] 02:39 PM HR=79 bpm, GEMM=455/114 mmhg, SpO2=98.0 %, Resp=19 B/min 02:40 PM Post Blood Pressure 182/114 [email or web address] 02:40 PM 14:40 Post Pulses Bilateral DP & PT 2+ [email or web address] 02:40 PM Information taught Cardiac Cath and Angioseal [email or web address] 02:40 PM Education needs Procedure, Plan of Care, and Disease Process [email or web address] 02:40 PM Learning barriers :Sedated [email or web address] 02:40 PM Education Methods Verbal [email or web address] 02:40 PM Education evaluation Able to repeat information [email or web address] 02:40 PM Site status No bleeding/hematoma - Rt Groin as reported by Nakia Mckeon RT (R) at 14:40 [email or web address] 02:40 PM Opsite applied [email or web address] 02:40 PM Delay to floor No [email or web address] 02:40 PM Complications: None [email or web address] 02:41 PM Family placed in consult room. [email or web address] 02:42 PM Vitals capture stopped. 02:44 PM Report given to luisito MACIEL Pt taken to 3B Room #49. 14:44 [email or web address] 02:45 PM Patient out of room: 14:45 [email or web address] Complications Complication None None Hemodynamics Pressures Site Systolic/A Wave Diastolic/V Wave Mean AO 151 109 126 AO 131 105 119 LV 131 13 14 LV 123 4 6 AO 133 51 93 Post Procedure Information Blood Pressure: 182/114 mmHg Rhythm: NSR Post procedural instructions were given Closure Device Time Device Success/Fail 02/24/2018 2:38:00 PM Angio-Seal VIP Successful Site Checks Time Location Status Staff Sheath In? Note 02:40 PM Rt Groin No bleeding/hematoma Nakia Mckeon RT (R) Pulses Time Site Pre-Procedure Post-Procedure Note 02/24/2018 1:37:00 PM Bilateral DP & PT 2+ 2:40:00 PM Bilateral DP & PT 2+ Updated by Thee Duque RT (R) on 02/24/2018 2:46:58 PM Thee Duque RT electronically signed on 02/24/2018 2:48:28 PM with status of Final
[2018-02-24] MEDS: Subcutaneous Insulin Pump [T:Slim] 1 EACH SQ SCH (16:01)
[2018-02-24 19:03] VITALS: BP 135/78
== END 2018-02-24 19:08 | disposition home or self-care (01) ==
LOC: 3BNU 12:35 → EMEROOARM 12:35 → 3BNU 15:47
PROVIDERS: ADMIT Student in an Organized Health Care Education/Training Program; ATTEND Internal Medicine